=== PATIENT | male | born 1935 | race Caucasian/White ===

== ENCOUNTER 2016-08-11 20:31 | Inpatient (IN) | payer MEDICARE, BC ==
[~2016-08-11] VITALS: Ht 182.9 cm; Wt 81.6 kg
[2016-08-11] MEDS ORDERED: DOCU-109 PO (20:42)
[2016-08-11] MEDS ORDERED: HYDR-971 PO (20:42)
[2016-08-11] MEDS ORDERED: ASPI81TA50 PO (20:42)
[2016-08-11] MEDS ORDERED: CETI10TA16 PO (20:42)
[2016-08-11] MEDS ORDERED: MULT1TAB52 PO (20:42)
[2016-08-11] MEDS ORDERED: CELE200C PO (20:42)
[2016-08-11] MEDS ORDERED: MAG355OR33 PO (20:42)
[2016-08-11] MEDS ORDERED: IBUP400T18 PO (20:42)
[2016-08-11] MEDS ORDERED: LORA0.5T96 PO (20:42)
[2016-08-11] MEDS ORDERED: SERT50TA PO (20:42)
[2016-08-11] MEDS ORDERED: PROP10DR4 OU (20:42)
[2016-08-11] MEDS ORDERED: GLUC1CAP13 PO (20:44)
[2016-08-11] MEDS ORDERED: METHYL SALICYLATE/MENTHOL TOPICAL OINTMENT 29GM TUBE. TP PRN (20:45)
[2016-08-11] MEDS ORDERED: MAG HYDROX/AL HYDROX/SIMETH 30 ML ORAL.SUSP PO PRN (20:45)
[2016-08-11] MEDS ORDERED: MAGNESIUM HYDROXIDE 2,400 MG/30 ML ORAL.SUSP. PO PRN (20:45)
[2016-08-11] MEDS ORDERED: ACETAMINOPHEN 325 MG TABLET PO PRN (20:45)
--- NOTE | 2016-08-11 20:57 | PDOC ---
Exam Ciro Demential Exam: Ciro Note: Please also refer to the separate dictated note~for this date of service dictated separately.~Patient seen individually. Discussed the patient with Nursing staff reviewed the chart.~Reviewed interim history and current functioning. Reviewed vital signs,~Labs/ Radiology~and current medications noted below. Continue current treatment with the changes noted in the dictated addendum note Current Medications: Meds: Current Medications Acetaminophen (Tylenol) 650 mg PRN Q6HRS PRN PO PAIN / TEMP; Start 08/11/16 at 20:45; Status UNV Multi-Ingredient Ointment (Analgesic [place]) 1 josé antonio PRN QID PRN TP MUSCLE PAIN; Start 08/11/16 at 20:45; Status UNV Al Hydroxide/Mg Hydroxide (Mylanta Plus Xs) 15 ml PRN AFTMEALHC PRN PO DYSPEPSIA; Start 08/11/16 at 20:45; Status UNV Magnesium Hydroxide (Milk Of Magnesia) 2,400 mg PRN QHS PRN PO CONSTIPATION; Start 08/11/16 at 20:45; Status UNV Lorazepam (Ativan) 0.5 mg PRN Q6HRS PRN PO ANXIETY / AGITATION; Start 08/11/16 at 20:45; Status UNV Sertraline HCl (Zoloft) 50 mg DAILY PO ; Start 08/12/16 at 09:00; Status UNV Aspirin (Aspirin Enteric Coated) 81 mg DAILY PO ; Start 08/12/16 at 09:00; Status UNV Celecoxib (Celebrex) 200 mg DAILY PO ; Start 08/12/16 at 09:00; Status UNV Cetirizine HCl (Zyrtec) 10 mg DAILY PO ; Start 08/12/16 at 09:00; Status UNV Docusate Sodium (Colace) 100 mg PRN DAILY PRN PO CONSTIPATION; Start 08/11/16 at 21:00; Status UNV Acetaminophen/ Hydrocodone Bitart (Lortab 5/325) 1 tab PRN Q4HRS PRN PO PAIN; Start 08/11/16 at 21:00; Status UNV Ibuprofen (Motrin) 400 mg PRN Q6HRS PRN PO PAIN; Start 08/11/16 at 21:00; Status UNV Non-Formulary Medication 1 cap DAILY PO Joint Health; Start 08/12/16 at 09:00; Status UNV Non-Formulary Medication 1 tab DAILY PO Supplement; Start 08/12/16 at 09:00; Status UNV Non-Formulary Medication 1 drop BID OU ; Start 08/11/16 at 21:00; Status UNV Active Scripts Active Reported Glucosamine Complex-Msm Cap (Gluc Julio/Msm/Magnesium/Vit C) 1 Each Capsule 1 Cap PO DAILY Ativan (Lorazepam) 0.5 Mg Tablet 0.5 Mg PO PRN Q6HRS PRN Systane Balance (Propylene Glycol) 10 Ml Drops 1 Drop OU BID Colace (Docusate Sodium) 100 Mg Capsule 100 Mg PO PRN DAILY PRN [place] 5-325 Tablet (Hydrocodone Bit/Acetaminophen) 1 Each Tablet 1 Tab PO PRN Q4HRS PRN [place] Suspension (Mag Hydrox/Al Hydrox/Simeth) 355 Ml Oral.susp 30 Ml PO PRN QID PRN Ibuprofen 400 Mg Tablet 400 Mg PO PRN Q6HRS PRN Cetirizine Hcl 10 Mg Tablet 10 Mg PO DAILY Celebrex (Celecoxib) 200 Mg Capsule 200 Mg PO DAILY Multivitamins (Multivitamin) 1 Each Tablet 1 Tab PO DAILY Zoloft (Sertraline Hcl) 50 Mg Tablet 50 Mg PO DAILY Aspir-Low (Aspirin) 81 Mg Tablet. 81 Mg PO DAILY NEERU CALIX MD Aug 11, 2016 20:57
[2016-08-11] MEDS ORDERED: IBUPROFEN 400 MG TABLET. PO PRN (21:00)
[2016-08-11] MEDS ORDERED: DOCUSATE SODIUM 100 MG CAPSULE PO PRN (21:00)
[2016-08-11] MEDS: LORazepam 0.5 MG TABLET PO PRN (23:00)
[2016-08-12 02:14] LABS: ALBUMIN 3.8 g/dL (3.4-5.0); ALBUMIN/GLOBULIN RATIO 1.1 (1.0-1.7); CALCIUM 9.2 mg/dL (8.5-10.1); CREATININE 1.2 mg/dL (0.7-1.3); POTASSIUM 4.2 mmol/L (3.5-5.1); TOTAL BILIRUBIN 0.4 mg/dL (0.2-1.0); TOTAL PROTEIN 7.3 g/dL (6.4-8.2)
[2016-08-12 02:15] LABS: MAGNESIUM 2.1 mg/dL (1.8-2.4)
[2016-08-12 02:16] LABS: HEMATOCRIT 41.2 % (39.0-53.0); HEMOGLOBIN 13.5 g/dL (13.0-17.5); MEAN CORPUSCULAR HEMOGLOBIN 32 pg (25-35); MEAN CORPUSCULAR HGB CONC 33 g/dL (31-37); MEAN CORPUSCULAR VOLUME 98 fL (79-100); PLATELET COUNT 179 x10^3/uL (140-400); RED BLOOD COUNT 4.22 x10^6/uL (4.30-5.70); RED CELL DISTRIBUTION WIDTH 13.5 % (11.5-14.5); WHITE BLOOD COUNT 6.5 x10^3/uL (4.0-11.0)
[2016-08-12 02:17] LABS: BASO # 0.1 x10^3/uL (0.0-0.2); BASO % 1 % (0-3); EOS # 0.3 x10^3/uL (0.0-0.7); EOS % 4 % (0-3); LYMPH # 2.9 x10^3/uL (1.0-4.8); LYMPH % 45 % (24-48); MONO # 0.8 x10^3/uL (0.0-1.1); MONO % 12 % (0-9); NEUT # 2.5 x10^3uL (1.8-7.7); NEUT % 39 % (31-73)
[2016-08-12 02:27] LABS: BACTERIA,URINE 0 /HPF (0-FEW); BILIRUBIN,URINE NEG (NEG); CLARITY,URINE CLEAR; COLOR,URINE YELLOW; GLUCOSE,URINE NEG (NEG); NITRITE,URINE NEG (NEG); RBC,URINE OCC /HPF (0-2); SQUAMOUS EPITHELIAL CELL,UR FEW /LPF; UROBILINOGEN,URINE 2 mg/dL (0.2 mg/dL); WBC,URINE OCC /HPF (0-4)
[2016-08-12 05:56] VITALS: BP 129/76
[2016-08-12 06:09] VITALS: BP 119/68
[2016-08-12] MEDS: SERTRALINE 50 MG TABLET. PO SCH (08:12)
[2016-08-12] MEDS: POLYVINYL ALCOHOL 1.4% OPHTH SOLUTION 15ML BOTTLE. OU SCH ×2 (08:12→19:41)
[2016-08-12] MEDS: MULTIVITAMIN with MINERAL TABLET. PO SCH (08:12)
[2016-08-12] MEDS: ASPIRIN ENTERIC COATED 81 MG TABLET.DR. PO SCH (08:12)
[2016-08-12] MEDS: CETIRIZINE HCL 10 MG TABLET PO SCH (08:12)
[2016-08-12] MEDS: CELECOXIB 200 MG CAPSULE PO SCH (08:12)
[2016-08-12] MEDS ORDERED: VIT C PO SCH (09:00)
[2016-08-12] MEDS ORDERED: MSM PO SCH (09:00)
[2016-08-12] MEDS ORDERED: MAGNESIUM PO SCH (09:00)
[2016-08-12] MEDS ORDERED: GLUC SU PO SCH (09:00)
[2016-08-12 13:42] LABS: THYROID STIM HORMONE (TSH) 2.08 uIU/mL (0.358-3.740)
[2016-08-12] MEDS ORDERED: MELA1TAB13 PO (13:56)
[2016-08-12] MEDS ORDERED: GUAI600T47 PO (13:56)
[2016-08-12 15:10] LABS: T3 TOTAL 70 ng/dL (71-180); THYROXINE 4.5 ug/dL (4.5-12.0)
[2016-08-12 16:25] VITALS: BP 123/76
[2016-08-12] MEDS: LORazepam 0.5 MG TABLET PO PRN (19:38)
[2016-08-12] MEDS: MELATONIN 3 MG TABLET PO SCH (19:38)
--- NOTE | 2016-08-12 21:27 | EKG ---
[address] [address] Test Date: 2016-08-12 Test Time: 16:05:23 Pat Name: DARIN LOMELI Department: Room: [address] [place] [address] Gender: M Senior Caregiver: JOSE : 1935 Requested By: NEERU CALIX Order Number: [id number] Reading MD: Neto Castillo Measurements Intervals Terry Rate: 63 P: 33 SC: 178 QRS: 16 QRSD: 86 T: 32 QT: 404 QTc: 416 Interpretive Statements SINUS RHYTHM Electronically Signed On 08-16-2016 9:58:30 CDT by Neto Castillo
--- NOTE | 2016-08-12 22:24 | PDOC ---
Exam Ciro Demential Exam: Ciro Note: Please also refer to the separate dictated note~for this date of service dictated separately.~Patient seen individually. Discussed the patient with Nursing staff reviewed the chart.~Reviewed interim history and current functioning. Reviewed vital signs,~Labs/ Radiology~and current medications noted below. Continue current treatment with the changes noted in the dictated addendum note Assessment: Vital Signs: Vital Signs Date Time Temp Pulse Resp B/P Pulse Ox O2 Delivery O2 Flow Rate FiO2 08/12/16 16:25 97.9 87 19 123/76 98 Current Medications: Meds: Current Medications Acetaminophen (Tylenol) 650 mg PRN Q6HRS PRN PO MILD PAIN / TEMP; Start at 20:45 Multi-Ingredient Ointment (Analgesic [place]) 1 josé antonio PRN QID PRN TP MUSCLE PAIN; Start 08/11/16 at 20:45 Al Hydroxide/Mg Hydroxide (Mylanta Plus Xs) 15 ml PRN AFTMEALHC PRN PO DYSPEPSIA; Start 08/11/16 at 20:45 Magnesium Hydroxide (Milk Of Magnesia) 2,400 mg PRN QHS PRN PO CONSTIPATION; Start 08/11/16 at 20:45 Lorazepam (Ativan) 0.5 mg PRN Q6HRS PRN PO ANXIETY / AGITATION Last administered on 08/12/16 19:38; Start 08/11/16 at 20:45 Sertraline HCl (Zoloft) 50 mg DAILY PO Last administered on 08/12/16 08:12; Start 08/12/16 at 09:00 Aspirin (Aspirin Enteric Coated) 81 mg DAILY PO Last administered on 08/12/16 08:12; Start 08/12/16 at 09:00 Celecoxib (Celebrex) 200 mg DAILY PO Last administered on 08/12/16 08:12; Start 08/12/16 at 09:00 Cetirizine HCl (Zyrtec) 10 mg DAILY PO Last administered on 08/12/16 08:12; Start 08/12/16 at 09:00 Docusate Sodium (Colace) 100 mg PRN DAILY PRN PO CONSTIPATION; Start 08/11/16 at 21:00 Acetaminophen/ Hydrocodone Bitart (Lortab 5/325) 1 tab PRN Q4HRS PRN PO SEVERE PAIN; Start 08/11/16 at 21:00 Ibuprofen (Motrin) 400 mg PRN Q6HRS PRN PO MODERATE PAIN; Start 08/11/16 at 21: 00 Non-Formulary Medication 1 cap DAILY PO Joint Health; Start 08/12/16 at 09:00; Status UNV Multivitamins/ Calcium (Thera-M Plus) 1 tab DAILY PO Last administered on 08:12; Start 08/12/16 at 09:00 Artificial Tears (Artificial Tears) 1 drop BID OU ; Start 08/12/16 at 09:00 Guaifenesin (Mucinex Er) 600 mg BID PO ; Start 08/12/16 at 21:00 Melatonin 3 mg QHS PO Last administered on 08/12/16 19:38; Start 08/12/16 at 21:00 Olanzapine (Zyprexa Zydis) 2.5 mg PRN Q2HR PRN PO PSYCHOSIS Last administered on 08/12/16 19:53; Start 08/12/16 at 19:45 Active Scripts Active Reported Mucinex (Guaifenesin) 600 Mg Tablet.er 600 Mg PO BID Melatonin 3 Mg Tablet (Melatonin/Pyridoxine) 1 Each Tablet 3 Mg PO QHS Glucosamine Complex-Msm Cap (Gluc Julio/Msm/Magnesium/Vit C) 1 Each Capsule 1 Cap PO DAILY Ativan (Lorazepam) 0.5 Mg Tablet 0.5 Mg PO PRN Q6HRS PRN Systane Balance (Propylene Glycol) 10 Ml Drops 1 Drop OU BID Colace (Docusate Sodium) 100 Mg Capsule 100 Mg PO PRN DAILY PRN [place] 5-325 Tablet (Hydrocodone Bit/Acetaminophen) 1 Each Tablet 1 Tab PO PRN Q4HRS PRN [place] Suspension (Mag Hydrox/Al Hydrox/Simeth) 355 Ml Oral.susp 30 Ml PO PRN QID PRN Ibuprofen 400 Mg Tablet 400 Mg PO PRN Q6HRS PRN Cetirizine Hcl 10 Mg Tablet 10 Mg PO DAILY Celebrex (Celecoxib) 200 Mg Capsule 200 Mg PO DAILY Multivitamins (Multivitamin) 1 Each Tablet 1 Tab PO DAILY Zoloft (Sertraline Hcl) 50 Mg Tablet 50 Mg PO DAILY Aspir-Low (Aspirin) 81 Mg Tablet. 81 Mg PO DAILY NEERU CALIX MD Aug 12, 2016 22:24
[2016-08-13 06:05] VITALS: BP 141/77
[2016-08-13 06:09] LABS: HEMOGLOBIN A1C 5.3 % (4.8-5.6)
[2016-08-13] MEDS: ASPIRIN ENTERIC COATED 81 MG TABLET.DR. PO SCH (07:19)
[2016-08-13] MEDS: CETIRIZINE HCL 10 MG TABLET PO SCH (07:20)
[2016-08-13] MEDS: MULTIVITAMIN with MINERAL TABLET. PO SCH (07:20)
[2016-08-13] MEDS: SERTRALINE 50 MG TABLET. PO SCH (07:20)
[2016-08-13] MEDS: CELECOXIB 200 MG CAPSULE PO SCH (07:20)
[2016-08-13] MEDS: POLYVINYL ALCOHOL 1.4% OPHTH SOLUTION 15ML BOTTLE. OU SCH ×2 (07:21→19:34)
[2016-08-13 17:40] VITALS: BP 96/55
[2016-08-13] MEDS: MELATONIN 3 MG TABLET PO SCH (19:33)
[2016-08-13] MEDS: busPIRone 5 MG TABLET. PO SCH (19:34)
[2016-08-14 06:05] VITALS: BP 117/78
[2016-08-14] MEDS: MULTIVITAMIN with MINERAL TABLET. PO SCH (09:55)
[2016-08-14] MEDS: CETIRIZINE HCL 10 MG TABLET PO SCH (09:55)
[2016-08-14] MEDS: ASPIRIN ENTERIC COATED 81 MG TABLET.DR. PO SCH (09:55)
[2016-08-14] MEDS: busPIRone 5 MG TABLET. PO SCH ×2 (09:55→20:46)
[2016-08-14] MEDS: SERTRALINE 50 MG TABLET. PO SCH (09:56)
[2016-08-14] MEDS: POLYVINYL ALCOHOL 1.4% OPHTH SOLUTION 15ML BOTTLE. OU SCH ×3 (09:56→20:59)
[2016-08-14] MEDS: CELECOXIB 200 MG CAPSULE PO SCH (09:57)
--- NOTE | 2016-08-14 11:54 | PN ---
DATE: 08/12/2016 IDENTIFYING DATA: The patient is an 81-year-old male referred to us from [facility] after he presented to the [facility] on account of increased agitation, aggressive behavior, has been combative, banging doors, increasing confusion. The patient's behaviors were deemed a potential danger, unmanageable at the facility, referred from the ER for inpatient psychiatric stabilization. The patient was seen individually, discussed with nursing staff, reviewed current and past records. CHIEF COMPLAINT: "No." HISTORY OF PRESENT ILLNESS: The patient has a history of dementia; Alzheimer's, vascular type. He has been residing at the above facility for some time, but more recently getting explosive angry, aggressive, disruptive as noted above. He has had sleep and appetite changes. No active suicidal or homicidal ideation. No clear history of bipolar disorder. PAST PSYCHIATRIC HISTORY: As above. MEDICAL HISTORY: Hypertension, CHF, degenerative joint disease and Alzheimer disease. DRUG ALLERGIES: Negative. CODE STATUS: DNR. CURRENT PSYCHOTROPICS: Zoloft 50 mg a day and Ativan 0.5 mg q. 6 hours p.r.n. FAMILY HISTORY: Noncontributory. SOCIAL HISTORY: No history of alcohol, drug abuse, physical, sexual or elder abuse. He is not known to be a perpetrator. MENTAL STATUS EXAMINATION: The patient is oriented to himself. Insight, judgment, recent and remote memory, attention, concentration, fund of knowledge poor, consistent with his diagnosis. VITAL SIGNS: Temperature 97.6, pulse 60, BP 129/76. REVIEW OF SYSTEMS: No CV, , pulmonary, eye, ENT system symptoms on review. Reliability poor. IMPRESSION: Major neurocognitive disorder; Alzheimer, vascular with depression; delusion; behavioral disturbance; anxiety disorder, unspecified; impulse control disorder, unspecified. PLAN: Admit to the Geropsychiatry Unit at [facility]. I will see the patient daily individually from a psychiatric standpoint. Medical followup with Dr. Matias/Dr. Fournier. We will add Zyprexa p.r.n., since he has been extremely psychotic, agitated within the context of his confusion. Reportedly, he was living at home in [place], but his 2 years ago. Family brought him to this area. He is frequently exit seeking at times, appears lucid and then more confused. He has reportedly been sent back to the Emergency Room 3 times till this last visit when the ER called us. He used to report he worked for a [employer]. We will observe the patient's baseline, then adjust psychotropics as clinically indicated as this reviewed information from the Emergency Room directly prior to the patient's admission, interviewed with nursing staff. NEERU CALIX MD DR: CHIDI/cristi JOB#: [id number] / [id number]
[2016-08-14 15:45] VITALS: BP 125/74
--- NOTE | 2016-08-14 20:39 | PDOC ---
Exam Ciro Demential Exam: Ciro Note: Please also refer to the separate dictated note~for this date of service dictated separately.~Patient seen individually. Discussed the patient with Nursing staff reviewed the chart.~Reviewed interim history and current functioning. Reviewed vital signs,~Labs/ Radiology~and current medications noted below. Continue current treatment with the changes noted in the dictated addendum note Assessment: Vital Signs: Vital Signs Date Time Temp Pulse Resp B/P Pulse Ox O2 Delivery O2 Flow Rate FiO2 08/14/16 15:45 97.6 67 19 125/74 98 I&O Intake and Output 08/14/16 07:00 Intake Total 1080 ml Balance 1080 ml Intake Oral 1080 ml Current Medications: Meds: Current Medications Acetaminophen (Tylenol) 650 mg PRN Q6HRS PRN PO MILD PAIN / TEMP; Start at 20:45 Multi-Ingredient Ointment (Analgesic [place]) 1 josé antonio PRN QID PRN TP MUSCLE PAIN; Start 08/11/16 at 20:45 Al Hydroxide/Mg Hydroxide (Mylanta Plus Xs) 15 ml PRN AFTMEALHC PRN PO DYSPEPSIA; Start 08/11/16 at 20:45 Magnesium Hydroxide (Milk Of Magnesia) 2,400 mg PRN QHS PRN PO CONSTIPATION; Start 08/11/16 at 20:45 Lorazepam (Ativan) 0.5 mg PRN Q6HRS PRN PO ANXIETY / AGITATION Last administered on 08/12/16 19:38; Start 08/11/16 at 20:45 Sertraline HCl (Zoloft) 50 mg DAILY PO Last administered on 08/14/16 09:56; Start 08/12/16 at 09:00 Aspirin (Aspirin Enteric Coated) 81 mg DAILY PO Last administered on 08/14/16 09:55; Start 08/12/16 at 09:00 Celecoxib (Celebrex) 200 mg DAILY PO Last administered on 08/14/16 09:57; Start 08/12/16 at 09:00 Cetirizine HCl (Zyrtec) 10 mg DAILY PO Last administered on 08/14/16 09:55; Start 08/12/16 at 09:00 Docusate Sodium (Colace) 100 mg PRN DAILY PRN PO CONSTIPATION; Start 08/11/16 at 21:00 Acetaminophen/ Hydrocodone Bitart (Lortab 5/325) 1 tab PRN Q4HRS PRN PO SEVERE PAIN; Start 08/11/16 at 21:00 Ibuprofen (Motrin) 400 mg PRN Q6HRS PRN PO MODERATE PAIN; Start 08/11/16 at 21: 00 Non-Formulary Medication 1 cap DAILY PO Joint Health; Start 08/12/16 at 09:00; Status UNV Multivitamins/ Calcium (Thera-M Plus) 1 tab DAILY PO Last administered on 09:55; Start 08/12/16 at 09:00 Artificial Tears (Artificial Tears) 1 drop BID OU Last administered on 09:56; Start 08/12/16 at 09:00 Guaifenesin (Mucinex Er) 600 mg BID PO Last administered on 08/14/16 09:55; Start 08/12/16 at 21:00 Melatonin 3 mg QHS PO Last administered on 08/13/16 19:33; Start 08/12/16 at 21:00 Olanzapine (Zyprexa Zydis) 2.5 mg PRN Q2HR PRN PO PSYCHOSIS Last administered on 08/13/16 12:12; Start 08/12/16 at 19:45 Buspirone HCl (Buspar) 5 mg BID PO Last administered on 08/14/16 09:55; Start 08/13/16 at 21:00 Active Scripts Active Reported Mucinex (Guaifenesin) 600 Mg Tablet.er 600 Mg PO BID Melatonin 3 Mg Tablet (Melatonin/Pyridoxine) 1 Each Tablet 3 Mg PO QHS Glucosamine Complex-Msm Cap (Gluc Julio/Msm/Magnesium/Vit C) 1 Each Capsule 1 Cap PO DAILY Ativan (Lorazepam) 0.5 Mg Tablet 0.5 Mg PO PRN Q6HRS PRN Systane Balance (Propylene Glycol) 10 Ml Drops 1 Drop OU BID Colace (Docusate Sodium) 100 Mg Capsule 100 Mg PO PRN DAILY PRN [place] 5-325 Tablet (Hydrocodone Bit/Acetaminophen) 1 Each Tablet 1 Tab PO PRN Q4HRS PRN Mintox Suspension (Mag Hydrox/Al Hydrox/Simeth) 355 Ml Oral.susp 30 Ml PO PRN QID PRN Ibuprofen 400 Mg Tablet 400 Mg PO PRN Q6HRS PRN Cetirizine Hcl 10 Mg Tablet 10 Mg PO DAILY Celebrex (Celecoxib) 200 Mg Capsule 200 Mg PO DAILY Multivitamins (Multivitamin) 1 Each Tablet 1 Tab PO DAILY Zoloft (Sertraline Hcl) 50 Mg Tablet 50 Mg PO DAILY Aspir-Low (Aspirin) 81 Mg Tablet.dr 81 Mg PO DAILY Diagnosis: Problems: (1) Anxiety disorder (2) Dementia in Alzheimer's disease with delusions (3) Dementia in Alzheimer's disease with depression (4) Dementia, vascular, with delusions (5) Dementia, vascular, with depression (6) Impulse control disorder NEERU CALIX MD August 14, 2016 20:39
[2016-08-14] MEDS: MELATONIN 3 MG TABLET PO SCH (20:46)
[2016-08-14 21:10] VITALS: BP 102/57
--- NOTE | 2016-08-15 02:24 | PN ---
DATE: 08/13/2016 This is late entry of 08/13/2016. SUBJECTIVE: The patient was seen on rounds the evening of 08/13/2016, discussed with nursing staff, reviewed the chart. Overall, per nursing report, the patient had a better day. He remains confused, agitated in the afternoon, received Zyprexa Zydis p.r.n., refused his at bedtime meds on 08/12/2016, had to be syringed, remains anxious, confused. REVIEW OF SYSTEMS: No CV, , pulmonary, eye, ENT system symptoms on review. Reliability poor. MENTAL STATUS EXAMINATION: Oriented to himself. Insight, judgment, recent and remote memory, attention, concentration, fund of knowledge poor, consistent with his diagnosis. OBJECTIVE: Temperature 97, pulse 68, respirations 20, BP 117/78. IMPRESSION: Major neurocognitive disorder, Alzheimer, vascular with depression, delusion, behavioral disturbance. Rest unchanged. PLAN: Start BuSpar 5 mg twice a day, maintain Zoloft 50 mg a day, Ativan and Zyprexa p.r.n. May need to increase Zoloft in due course. MAN Marlon CALIX MD DR: CHIDI/cristi JOB#: [id number] / [id number]
[2016-08-15 06:27] VITALS: BP 138/76
[2016-08-15] MEDS: CHOLECALCIFEROL (VITAMIN D3) 1,000 UNIT TABLET PO SCH ×2 (08:00→11:30)
--- NOTE | 2016-08-15 08:18 | RAD ---
Pelvis with right hip, 3 views, 08/15/2016: History: Fall, injury There is dislocation of a right total hip prosthesis. The femoral head component is displaced proximally and laterally relative to the acetabular component. No fracture is identified. There is mild degenerative change at the left hip joint and in the lower lumbar spine. IMPRESSION: Dislocated right hip prosthesis.
[2016-08-15] MEDS: SERTRALINE 50 MG TABLET. PO SCH (08:40)
[2016-08-15] MEDS: busPIRone 5 MG TABLET. PO SCH ×2 (08:43→19:21)
[2016-08-15] MEDS: HYDROcodone/APAP 5/325MG 1 TAB TABLET PO PRN (08:43)
[2016-08-15] MEDS: MULTIVITAMIN with MINERAL TABLET. PO SCH (09:00)
[2016-08-15] MEDS: POLYVINYL ALCOHOL 1.4% OPHTH SOLUTION 15ML BOTTLE. OU SCH ×2 (09:00→19:21)
[2016-08-15] MEDS: CETIRIZINE HCL 10 MG TABLET PO SCH (09:00)
[2016-08-15] MEDS: CELECOXIB 200 MG CAPSULE PO SCH (09:00)
[2016-08-15] MEDS: ASPIRIN ENTERIC COATED 81 MG TABLET.DR. PO SCH (09:00)
--- NOTE | 2016-08-15 11:46 | HP ---
ADMIT DATE: 08/12/2016 IDENTIFYING DATA: The patient is an 81-year-old male referred to us from [facility] after he presented to the [facility] on account of increased agitation, aggressive behavior, has been combative, banging doors, increasing confusion. The patient's behaviors were deemed a potential danger, unmanageable at the facility, referred from the ER for inpatient psychiatric stabilization. The patient was seen individually, discussed with nursing staff, reviewed current and past records. CHIEF COMPLAINT: "No." HISTORY OF PRESENT ILLNESS: The patient has a history of dementia; Alzheimer's, vascular type. He has been residing at the above facility for some time, but more recently getting explosive angry, aggressive, disruptive as noted above. He has had sleep and appetite changes. No active suicidal or homicidal ideation. No clear history of bipolar disorder. PAST PSYCHIATRIC HISTORY: As above. MEDICAL HISTORY: Hypertension, CHF, degenerative joint disease and Alzheimer disease. DRUG ALLERGIES: Negative. CODE STATUS: DNR. CURRENT PSYCHOTROPICS: Zoloft 50 mg a day and Ativan 0.5 mg q. 6 hours p.r.n. FAMILY HISTORY: Noncontributory. SOCIAL HISTORY: No history of alcohol, drug abuse, physical, sexual or elder abuse. He is not known to be a perpetrator. MENTAL STATUS EXAMINATION: The patient is oriented to himself. Insight, judgment, recent and remote memory, attention, concentration, fund of knowledge poor, consistent with his diagnosis. VITAL SIGNS: Temperature 97.6, pulse 60, BP 129/76. REVIEW OF SYSTEMS: No CV, , pulmonary, eye, ENT system symptoms on review. Reliability poor. IMPRESSION: Major neurocognitive disorder; Alzheimer, vascular with depression; delusion; behavioral disturbance; anxiety disorder, unspecified; impulse control disorder, unspecified. PLAN: Admit to the Geropsychiatry Unit at [facility]. I will see the patient daily individually from a psychiatric standpoint. Medical followup with Dr. Matias/Dr. Fournier. We will add Zyprexa p.r.n., since he has been extremely psychotic, agitated within the context of his confusion. Reportedly, he was living at home in [place], but his 2 years ago. Family brought him to this area. He is frequently exit seeking at times, appears lucid and then more confused. He has reportedly been sent back to the Emergency Room 3 times till this last visit when the ER called us. He used to report he worked for a [employer]. We will observe the patient's baseline, then adjust psychotropics as clinically indicated as this reviewed information from the Emergency Room directly prior to the patient's admission, interviewed with nursing staff. NEERU CALIX MD DR: CHIDI/cristi JOB#: [id number] / [id number]
[2016-08-15 15:55] VITALS: BP 109/51
[2016-08-15] MEDS: MELATONIN 3 MG TABLET PO SCH (19:21)
--- NOTE | 2016-08-15 21:14 | PDOC ---
Exam Ciro Demential Exam: Ciro Note: Please also refer to the separate dictated note~for this date of service dictated separately.~Patient seen individually. Discussed the patient with Nursing staff reviewed the chart.~Reviewed interim history and current functioning. Reviewed vital signs,~Labs/ Radiology~and current medications noted below. Continue current treatment with the changes noted in the dictated addendum note Assessment: Vital Signs: Vital Signs Date Time Temp Pulse Resp B/P Pulse Ox O2 Delivery O2 Flow Rate FiO2 08/15/16 15:55 98.5 63 18 109/51 100 08/15/16 09:45 Room Air I&O Intake and Output 08/15/16 07:00 Intake Total 840 ml Balance 840 ml Intake Oral 840 ml # Voids 2 Current Medications: Meds: Current Medications Acetaminophen (Tylenol) 650 mg PRN Q6HRS PRN PO MILD PAIN / TEMP; Start at 20:45 Multi-Ingredient Ointment (Analgesic [place]) 1 josé antonio PRN QID PRN TP MUSCLE PAIN; Start 08/11/16 at 20:45 Al Hydroxide/Mg Hydroxide (Mylanta Plus Xs) 15 ml PRN AFTMEALHC PRN PO DYSPEPSIA; Start 08/11/16 at 20:45 Magnesium Hydroxide (Milk Of Magnesia) 2,400 mg PRN QHS PRN PO CONSTIPATION; Start 08/11/16 at 20:45 Lorazepam (Ativan) 0.5 mg PRN Q6HRS PRN PO ANXIETY / AGITATION Last administered on 08/12/16 19:38; Start 08/11/16 at 20:45 Sertraline HCl (Zoloft) 50 mg DAILY PO Last administered on 08/15/16 08:40; Start 08/12/16 at 09:00 Aspirin (Aspirin Enteric Coated) 81 mg DAILY PO Last administered on 08/14/16 09:55; Start 08/12/16 at 09:00 Celecoxib (Celebrex) 200 mg DAILY PO Last administered on 08/14/16 09:57; Start 08/12/16 at 09:00 Cetirizine HCl (Zyrtec) 10 mg DAILY PO Last administered on 08/14/16 09:55; Start 08/12/16 at 09:00 Docusate Sodium (Colace) 100 mg PRN DAILY PRN PO CONSTIPATION; Start 08/11/16 at 21:00 Acetaminophen/ Hydrocodone Bitart (Lortab 5/325) 1 tab PRN Q4HRS PRN PO SEVERE PAIN Last administered on 08/15/16 08:43; Start 08/11/16 at 21:00 Ibuprofen (Motrin) 400 mg PRN Q6HRS PRN PO MODERATE PAIN; Start 08/11/16 at 21: 00 Non-Formulary Medication 1 cap DAILY PO Joint Health; Start 08/12/16 at 09:00; Status UNV Multivitamins/ Calcium (Thera-M Plus) 1 tab DAILY PO Last administered on 09:55; Start 08/12/16 at 09:00 Artificial Tears (Artificial Tears) 1 drop BID OU Last administered on 19:21; Start 08/12/16 at 09:00 Guaifenesin (Mucinex Er) 600 mg BID PO Last administered on 08/15/16 19:21; Start 08/12/16 at 21:00 Melatonin 3 mg QHS PO Last administered on 08/15/16 19:21; Start 08/12/16 at 21 :00 Olanzapine (Zyprexa Zydis) 2.5 mg PRN Q2HR PRN PO PSYCHOSIS Last administered on 08/13/16 12:12; Start 08/12/16 at 19:45 Buspirone HCl (Buspar) 5 mg BID PO Last administered on 08/15/16 19:21; Start 08/13/16 at 21:00 Vitamin D (Vitamin D3) 2,000 unit BIDACBL PO ; Start 08/15/16 at 08:00 Active Scripts Active Reported Mucinex (Guaifenesin) 600 Mg Tablet.er 600 Mg PO BID Melatonin 3 Mg Tablet (Melatonin/Pyridoxine) 1 Each Tablet 3 Mg PO QHS Glucosamine Complex-Msm Cap (Gluc Julio/Msm/Magnesium/Vit C) 1 Each Capsule 1 Cap PO DAILY Ativan (Lorazepam) 0.5 Mg Tablet 0.5 Mg PO PRN Q6HRS PRN Systane Balance (Propylene Glycol) 10 Ml Drops 1 Drop OU BID Colace (Docusate Sodium) 100 Mg Capsule 100 Mg PO PRN DAILY PRN [place] 5-325 Tablet (Hydrocodone Bit/Acetaminophen) 1 Each Tablet 1 Tab PO PRN Q4HRS PRN [place] Suspension (Mag Hydrox/Al Hydrox/Simeth) 355 Ml Oral.susp 30 Ml PO PRN QID PRN Ibuprofen 400 Mg Tablet 400 Mg PO PRN Q6HRS PRN Cetirizine Hcl 10 Mg Tablet 10 Mg PO DAILY Celebrex (Celecoxib) 200 Mg Capsule 200 Mg PO DAILY Multivitamins (Multivitamin) 1 Each Tablet 1 Tab PO DAILY Zoloft (Sertraline Hcl) 50 Mg Tablet 50 Mg PO DAILY Aspir-Low (Aspirin) 81 Mg Tablet.dr 81 Mg PO DAILY Diagnosis: Problems: (1) Anxiety disorder (2) Dementia in Alzheimer's disease with delusions (3) Dementia in Alzheimer's disease with depression (4) Dementia, vascular, with delusions (5) Dementia, vascular, with depression (6) Impulse control disorder NEERU CALIX MD August 15, 2016 21:14
[2016-08-15] MEDS: LORazepam 0.5 MG TABLET PO PRN (23:01)
[2016-08-16] MEDS: HYDROcodone/APAP 5/325MG 1 TAB TABLET PO PRN ×2 (00:31→21:26)
--- NOTE | 2016-08-16 04:22 | PN ---
DATE: 08/15/2016 REASON FOR VISIT: Dislocated right hip prosthesis. HISTORY OF PRESENT ILLNESS: This is an 81-year-old male who was [facility] the [facility] 08[facility]. He has no history of severe falls. However, according to the son, he has dislocated this hip prosthesis twice previously. He was found on the floor today on his hands and knees, but was also on his hands and knees yesterday, he is complaining of severe pain in the hip. The patient was taken down to the radiology. OBJECTIVE: The patient is alert, he is in mild pain of the right leg, pain to touch. He does have good vascular and slightly inwardly rotated x-ray reveals a dislocated right hip prosthesis. ASSESSMENT: Dislocated right hip prosthesis. PLAN: He will go down to [place] and back for a short procedure per Dr. Brenner to put the hip prosthesis back in place. NBA CASANOVA DO DR: REX/cristi JOB#: [id number] / [id number]
[2016-08-16 06:25] VITALS: BP 145/71
--- NOTE | 2016-08-16 07:45 | PN ---
DATE: 08/14/2016 PSYCHIATRIC PROGRESS NOTE This is late entry of 08/14/2016 and covers elements not covered in my initial note. SUBJECTIVE: Per nursing report, the patient is compliant with his medications and pudding. He wanders the hallways. I had a message to call the patient's son, David and we had a long discussion about the patient's history, diagnosis, current treatment and discharge plan. The patient was living in [place] and his son brought him here about 2 years back after his . He has been at [facility] and was the only child. Recently prior to this referral, he was having poor sleep, grabbing at staff, banging doors. He had gone to the ER and work up was all negative from there before he came to us. Reportedly, the patient has a history of familial tremors as well. REVIEW OF SYSTEMS: No CV, , pulmonary, eye, ENT system symptoms on review. Reliability poor. MENTAL STATUS EXAMINATION: Oriented to himself. Insight, judgment, recent and remote memory, attention, concentration, fund of knowledge poor, consistent with his diagnosis. IMPRESSION: Major neurocognitive disorder, Alzheimer, vascular with depression, delusion, behavioral disturbance. Rest unchanged. PLAN: Continue Zoloft 50 mg a day, Ativan, Zyprexa p.r.n., BuSpar 5 mg b.i.d., melatonin 3 mg at bedtime. Make further adjustments as clinically indicated. May need to increase BuSpar considered Depakote if aggression resurfaces. Discussed all of this at great length with the son. MAN Marlon CALIX MD DR: CHIDI/cristi JOB#: [id number] / [id number]
[2016-08-16] MEDS: POLYVINYL ALCOHOL 1.4% OPHTH SOLUTION 15ML BOTTLE. OU SCH ×2 (09:00→21:09)
[2016-08-16] MEDS: ASPIRIN ENTERIC COATED 81 MG TABLET.DR. PO SCH (09:36)
[2016-08-16] MEDS: MULTIVITAMIN with MINERAL TABLET. PO SCH (09:36)
[2016-08-16] MEDS: busPIRone 5 MG TABLET. PO SCH ×2 (09:37→21:09)
[2016-08-16] MEDS: SERTRALINE 50 MG TABLET. PO SCH (09:37)
[2016-08-16] MEDS: CHOLECALCIFEROL (VITAMIN D3) 1,000 UNIT TABLET PO SCH ×2 (09:37→11:30)
[2016-08-16] MEDS: CETIRIZINE HCL 10 MG TABLET PO SCH (09:37)
[2016-08-16] MEDS: CELECOXIB 200 MG CAPSULE PO SCH (09:37)
[2016-08-16 15:42] VITALS: BP 119/71
--- NOTE | 2016-08-16 21:00 | PDOC ---
Exam Ciro Demential Exam: Ciro Note: Please also refer to the separate dictated note~for this date of service dictated separately.~Patient seen individually. Discussed the patient with Nursing staff reviewed the chart.~Reviewed interim history and current functioning. Reviewed vital signs,~Labs/ Radiology~and current medications noted below. Continue current treatment with the changes noted in the dictated addendum note Assessment: Vital Signs: Vital Signs Date Time Temp Pulse Resp B/P Pulse Ox O2 Delivery O2 Flow Rate FiO2 08/16/16 15:42 97.7 64 17 119/71 96 08/16/16 03:04 Room Air I&O Intake and Output 08/16/16 07:00 Intake Total 360 ml Balance 360 ml Intake Oral 360 ml # Voids 2 Current Medications: Meds: Current Medications Acetaminophen (Tylenol) 650 mg PRN Q6HRS PRN PO MILD PAIN / TEMP; Start at 20:45 Multi-Ingredient Ointment (Analgesic [place]) 1 josé antonio PRN QID PRN TP MUSCLE PAIN; Start 08/11/16 at 20:45 Al Hydroxide/Mg Hydroxide (Mylanta Plus Xs) 15 ml PRN AFTMEALHC PRN PO DYSPEPSIA; Start 08/11/16 at 20:45 Magnesium Hydroxide (Milk Of Magnesia) 2,400 mg PRN QHS PRN PO CONSTIPATION; Start 08/11/16 at 20:45 Lorazepam (Ativan) 0.5 mg PRN Q6HRS PRN PO ANXIETY / AGITATION Last administered on 08/15/16 23:01; Start 08/11/16 at 20:45 Sertraline HCl (Zoloft) 50 mg DAILY PO Last administered on 08/16/16 09:37; Start 08/12/16 at 09:00 Aspirin (Aspirin Enteric Coated) 81 mg DAILY PO Last administered on 08/16/16 09:36; Start 08/12/16 at 09:00 Celecoxib (Celebrex) 200 mg DAILY PO Last administered on 08/16/16 09:37; Start 08/12/16 at 09:00 Cetirizine HCl (Zyrtec) 10 mg DAILY PO Last administered on 08/16/16 09:37; Start 08/12/16 at 09:00 Docusate Sodium (Colace) 100 mg PRN DAILY PRN PO CONSTIPATION; Start 08/11/16 at 21:00 Acetaminophen/ Hydrocodone Bitart (Lortab 5/325) 1 tab PRN Q4HRS PRN PO SEVERE PAIN Last administered on 08/16/16 00:31; Start 08/11/16 at 21:00 Ibuprofen (Motrin) 400 mg PRN Q6HRS PRN PO MODERATE PAIN; Start 08/11/16 at 21: 00 Non-Formulary Medication 1 cap DAILY PO [facility]; Start 08/12/16 at 09:00; Status UNV Multivitamins/ Calcium (Thera-M Plus) 1 tab DAILY PO Last administered on 09:36; Start 08/12/16 at 09:00 Artificial Tears (Artificial Tears) 1 drop BID OU Last administered on 09:00; Start 08/12/16 at 09:00 Guaifenesin (Mucinex Er) 600 mg BID PO Last administered on 08/16/16 09:37; Start 08/12/16 at 21:00 Melatonin 3 mg QHS PO Last administered on 08/15/16 19:21; Start 08/12/16 at 21 :00 Olanzapine (Zyprexa Zydis) 2.5 mg PRN Q2HR PRN PO PSYCHOSIS Last administered on 08/15/16 23:01; Start 08/12/16 at 19:45 Buspirone HCl (Buspar) 5 mg BID PO Last administered on 08/16/16 09:37; Start 08/13/16 at 21:00 Vitamin D (Vitamin D3) 2,000 unit BIDACBL PO Last administered on 08/16/16 09: 37; Start 08/15/16 at 08:00 Mirtazapine (Remeron) 7.5 mg QHS PO ; Start 08/16/16 at 21:00 Active Scripts Active Reported Mucinex (Guaifenesin) 600 Mg Tablet.er 600 Mg PO BID Melatonin 3 Mg Tablet (Melatonin/Pyridoxine) 1 Each Tablet 3 Mg PO QHS Glucosamine Complex-Msm Cap (Gluc Julio/Msm/Magnesium/Vit C) 1 Each Capsule 1 Cap PO DAILY Ativan (Lorazepam) 0.5 Mg Tablet 0.5 Mg PO PRN Q6HRS PRN Systane Balance (Propylene Glycol) 10 Ml Drops 1 Drop OU BID Colace (Docusate Sodium) 100 Mg Capsule 100 Mg PO PRN DAILY PRN [place] 5-325 Tablet (Hydrocodone Bit/Acetaminophen) 1 Each Tablet 1 Tab PO PRN Q4HRS PRN [place] Suspension (Mag Hydrox/Al Hydrox/Simeth) 355 Ml Oral.susp 30 Ml PO PRN QID PRN Ibuprofen 400 Mg Tablet 400 Mg PO PRN Q6HRS PRN Cetirizine Hcl 10 Mg Tablet 10 Mg PO DAILY Celebrex (Celecoxib) 200 Mg Capsule 200 Mg PO DAILY Multivitamins (Multivitamin) 1 Each Tablet 1 Tab PO DAILY Zoloft (Sertraline Hcl) 50 Mg Tablet 50 Mg PO DAILY Aspir-Low (Aspirin) 81 Mg Tablet.dr 81 Mg PO DAILY Diagnosis: Problems: (1) Anxiety disorder (2) 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
[2016-08-16] MEDS: MELATONIN 3 MG TABLET PO SCH (21:09)
[2016-08-16] MEDS: MIRTAZAPINE 7.5 MG TABLET. PO SCH (21:09)
--- NOTE | 2016-08-17 02:44 | PN ---
DATE: 08/15/2016 PSYCHIATRIC PROGRESS NOTE This is a late entry on 08/15/2016, covers the elements not covered in my initial note. Overall, the patient remains confused. He dislocated his right hip and Orthopedics has repositioned it and he is now full weightbearing after that. He has not been aggressive. REVIEW OF SYSTEMS: No CV, , pulmonary, eye, ENT system symptoms on review. MENTAL STATUS EXAM: Oriented to himself. Insight, judgment, recent, and remote memory, attention, concentration, fund of knowledge poor, consistent with his diagnosis. LABORATORY DATA: Mentioned in my initial note. PLAN: Continue current psychotropics mentioned in my initial note including BuSpar, melatonin, Zoloft, Ativan p.r.n., Zyprexa p.r.n. MAN Marlon CALIX MD DR: CHIDI/cristi JOB#: [id number] / [id number]
[2016-08-17 07:36] VITALS: BP 132/73
[2016-08-17] MEDS: CELECOXIB 200 MG CAPSULE PO SCH (08:59)
[2016-08-17] MEDS: busPIRone 5 MG TABLET. PO SCH ×2 (08:59→19:35)
[2016-08-17] MEDS: SERTRALINE 50 MG TABLET. PO SCH (08:59)
[2016-08-17] MEDS: MULTIVITAMIN with MINERAL TABLET. PO SCH (08:59)
[2016-08-17] MEDS: CHOLECALCIFEROL (VITAMIN D3) 1,000 UNIT TABLET PO SCH ×2 (08:59→11:35)
[2016-08-17] MEDS: CETIRIZINE HCL 10 MG TABLET PO SCH (08:59)
[2016-08-17] MEDS: ASPIRIN ENTERIC COATED 81 MG TABLET.DR. PO SCH (08:59)
[2016-08-17] MEDS: HYDROcodone/APAP 5/325MG 1 TAB TABLET PO PRN ×2 (09:02→17:31)
[2016-08-17] MEDS: POLYVINYL ALCOHOL 1.4% OPHTH SOLUTION 15ML BOTTLE. OU SCH ×2 (09:02→19:35)
[2016-08-17 09:42] LABS: BASO # 0.1 x10^3/uL (0.0-0.2); BASO % 0 % (0-3); EOS # 0.4 x10^3/uL (0.0-0.7); EOS % 2 % (0-3); HEMATOCRIT 43.2 % (39.0-53.0); HEMOGLOBIN 14.3 g/dL (13.0-17.5); LYMPH # 1.9 x10^3/uL (1.0-4.8); LYMPH % 12 % (24-48); MEAN CORPUSCULAR HEMOGLOBIN 32 pg (25-35); MEAN CORPUSCULAR HGB CONC 33 g/dL (31-37); MEAN CORPUSCULAR VOLUME 97 fL (79-100); MONO # 0.9 x10^3/uL (0.0-1.1); MONO % 6 % (0-9); NEUT # 12.6 x10^3uL (1.8-7.7); NEUT % 80 % (31-73); PLATELET COUNT 192 x10^3/uL (140-400); RED BLOOD COUNT 4.43 x10^6/uL (4.30-5.70); RED CELL DISTRIBUTION WIDTH 13.8 % (11.5-14.5); WHITE BLOOD COUNT 15.9 x10^3/uL (4.0-11.0)
[2016-08-17 09:55] LABS: ALBUMIN 3.9 g/dL (3.4-5.0); ALBUMIN/GLOBULIN RATIO 1.1 (1.0-1.7); CALCIUM 9.3 mg/dL (8.5-10.1); GFR 71.5; POTASSIUM 3.8 mmol/L (3.5-5.1); TOTAL BILIRUBIN 0.8 mg/dL (0.2-1.0); TOTAL PROTEIN 7.5 g/dL (6.4-8.2)
[2016-08-17 10:50] LABS: % BANDS 5 % (0-9); % BASOS 0 % (0-3); % EOS 2 % (0-5); % LYMPHS 11 % (24-48); % MONOS 4 % (0-10); % SEGS 75 % (35-66); PLT ESTIMATE ADEQUATE (ADEQUATE); TOXIC GRANULATION PRESENT
[2016-08-17 12:34] LABS: % ATYL 3 % (0-0)
[2016-08-17 15:51] VITALS: BP 103/56
[2016-08-17] MEDS: LORazepam 0.5 MG TABLET PO PRN (19:12)
[2016-08-17] MEDS: MELATONIN 3 MG TABLET PO SCH (19:35)
[2016-08-17] MEDS: MIRTAZAPINE 7.5 MG TABLET. PO SCH (19:36)
--- NOTE | 2016-08-17 20:20 | PDOC ---
Exam Ciro Demential Exam: Ciro Note: Please also refer to the separate dictated note~for this date of service dictated separately.~Patient seen individually. Discussed the patient with Nursing staff reviewed the chart.~Reviewed interim history and current functioning. Reviewed vital signs,~Labs/ Radiology~and current medications noted below. Continue current treatment with the changes noted in the dictated addendum note Assessment: Vital Signs: Vital Signs Date Time Temp Pulse Resp B/P (MAP) Pulse Ox O2 Delivery O2 Flow Rate FiO2 08/17/16 17:31 97 08/17/16 15:51 98.2 77 18 103/56 (72) 08/16/16 22:30 Room Air I&O Intake and Output 08/17/16 07:00 Intake Total 720 ml Balance 720 ml Intake Oral 720 ml # Voids 3 Labs: Laboratory Tests Test 08/17/16 09:22 White Blood Count 15.9 x10^3/uL (4.0-11.0) #H Red Blood Count 4.43 x10^6/uL (4.30-5.70) Hemoglobin 14.3 g/dL (13.0-17.5) Hematocrit 43.2 % (39.0-53.0) Mean Corpuscular Volume 97 fL (79-100) Mean Corpuscular Hemoglobin 32 pg (25-35) Mean Corpuscular Hemoglobin Concent 33 g/dL (31-37) Red Cell Distribution Width 13.8 % (11.5-14.5) Platelet Count 192 x10^3/uL (140-400) Neutrophils (%) (Auto) 80 % (31-73) H Lymphocytes (%) (Auto) 12 % (24-48) L Monocytes (%) (Auto) 6 % (0-9) Eosinophils (%) (Auto) 2 % (0-3) Basophils (%) (Auto) 0 % (0-3) Neutrophils # (Auto) 12.6 x10^3uL (1.8-7.7) H Lymphocytes # (Auto) 1.9 x10^3/uL (1.0-4.8) Monocytes # (Auto) 0.9 x10^3/uL (0.0-1.1) Eosinophils # (Auto) 0.4 x10^3/uL (0.0-0.7) Basophils # (Auto) 0.1 x10^3/uL (0.0-0.2) Segmented Neutrophils % 75 % (35-66) H Band Neutrophils % 5 % (0-9) Lymphocytes % 11 % (24-48) L Atypical Lymphocytes % (Manual) 3 % (0-0) H Monocytes % 4 % (0-10) Eosinophils % 2 % (0-5) Basophils % 0 % (0-3) Toxic Granulation Present Platelet Estimate Adequate (ADEQUATE) Sodium Level 142 mmol/L (136-145) Potassium Level 3.8 mmol/L (3.5-5.1) Chloride Level 104 mmol/L (98-107) Carbon Dioxide Level 31 mmol/L (21-32) Anion Gap 7 (6-14) Blood Urea Nitrogen 30 mg/dL (8-26) H Creatinine 1.0 mg/dL (0.7-1.3) Estimated GFR (Cockcroft-Gault) 71.5 BUN/Creatinine Ratio 30 (6-20) H Glucose Level 146 mg/dL (70-99) H Calcium Level 9.3 mg/dL (8.5-10.1) Magnesium Level 2.0 mg/dL (1.8-2.4) Total Bilirubin 0.8 mg/dL (0.2-1.0) Aspartate Amino Transferase (AST) 45 U/L (15-37) H Alanine Aminotransferase (ALT) 52 U/L (16-63) Alkaline Phosphatase 81 U/L (46-116) Total Protein 7.5 g/dL (6.4-8.2) Albumin 3.9 g/dL (3.4-5.0) Albumin/Globulin Ratio 1.1 (1.0-1.7) Current Medications: Meds: Current Medications Acetaminophen (Tylenol) 650 mg PRN Q6HRS PRN PO MILD PAIN / TEMP; Start at 20:45 Multi-Ingredient Ointment (Analgesic [place]) 1 josé antonio PRN QID PRN TP MUSCLE PAIN; Start 08/11/16 at 20:45 Al Hydroxide/Mg Hydroxide (Mylanta Plus Xs) 15 ml PRN AFTMEALHC PRN PO DYSPEPSIA; Start 08/11/16 at 20:45 Magnesium Hydroxide (Milk Of Magnesia) 2,400 mg PRN QHS PRN PO CONSTIPATION; Start 08/11/16 at 20:45 Lorazepam (Ativan) 0.5 mg PRN Q6HRS PRN PO ANXIETY / AGITATION Last administered on 08/17/16 19:12; Start 08/11/16 at 20:45 Sertraline HCl (Zoloft) 50 mg DAILY PO Last administered on 08/17/16 08:59; Start 08/12/16 at 09:00 Aspirin (Aspirin Enteric Coated) 81 mg DAILY PO Last administered on 08/17/16 08:59; Start 08/12/16 at 09:00 Celecoxib (Celebrex) 200 mg DAILY PO Last administered on 08/17/16 08:59; Start 08/12/16 at 09:00 Cetirizine HCl (Zyrtec) 10 mg DAILY PO Last administered on 08/17/16 08:59; Start 08/12/16 at 09:00 Docusate Sodium (Colace) 100 mg PRN DAILY PRN PO CONSTIPATION; Start 08/11/16 at 21:00 Acetaminophen/ Hydrocodone Bitart (Lortab 5/325) 1 tab PRN Q4HRS PRN PO SEVERE PAIN Last administered on 08/17/16 17:31; Start 08/11/16 at 21:00 Ibuprofen (Motrin) 400 mg PRN Q6HRS PRN PO MODERATE PAIN; Start 08/11/16 at 21: 00 Non-Formulary Medication 1 cap DAILY PO [facility]; Start 08/12/16 at 09:00; Status UNV Multivitamins/ Calcium (Thera-M Plus) 1 tab DAILY PO Last administered on 08:59; Start 08/12/16 at 09:00 Artificial Tears (Artificial Tears) 1 drop BID OU Last administered on 19:35; Start 08/12/16 at 09:00 Guaifenesin (Mucinex Er) 600 mg BID PO Last administered on 08/17/16 19:36; Start 08/12/16 at 21:00 Melatonin 3 mg QHS PO Last administered on 08/17/16 19:35; Start 08/12/16 at 21 :00 Olanzapine (Zyprexa Zydis) 2.5 mg PRN Q2HR PRN PO PSYCHOSIS Last administered on 08/17/16 19:13; Start 08/12/16 at 19:45 Buspirone HCl (Buspar) 5 mg BID PO Last administered on 08/17/16 19:35; Start 08/13/16 at 21:00 Vitamin D (Vitamin D3) 2,000 unit BIDACBL PO Last administered on 08/17/16 11: 35; Start 08/15/16 at 08:00 Mirtazapine (Remeron) 7.5 mg QHS PO Last administered on 08/17/16 19:36; Start 08/16/16 at 21:00 Active Scripts Active Reported Mucinex (Guaifenesin) 600 Mg Tablet.er 600 Mg PO BID Melatonin 3 Mg Tablet (Melatonin/Pyridoxine) 1 Each Tablet 3 Mg PO QHS Glucosamine Complex-Msm Cap (Gluc Julio/Msm/Magnesium/Vit C) 1 Each Capsule 1 Cap PO DAILY Ativan (Lorazepam) 0.5 Mg Tablet 0.5 Mg PO PRN Q6HRS PRN Systane Balance (Propylene Glycol) 10 Ml Drops 1 Drop OU BID Colace (Docusate Sodium) 100 Mg Capsule 100 Mg PO PRN DAILY PRN [place] 5-325 Tablet (Hydrocodone Bit/Acetaminophen) 1 Each Tablet 1 Tab PO PRN Q4HRS PRN [place] Suspension (Mag Hydrox/Al Hydrox/Simeth) 355 Ml Oral.susp 30 Ml PO PRN QID PRN Ibuprofen 400 Mg Tablet 400 Mg PO PRN Q6HRS PRN Cetirizine Hcl 10 Mg Tablet 10 Mg PO DAILY Celebrex (Celecoxib) 200 Mg Capsule 200 Mg PO DAILY Multivitamins (Multivitamin) 1 Each Tablet 1 Tab PO DAILY Zoloft (Sertraline Hcl) 50 Mg Tablet 50 Mg PO DAILY Aspir-Low (Aspirin) 81 Mg Tablet.dr 81 Mg PO DAILY Diagnosis: Problems: (1) Anxiety disorder (2) Dementia in Alzheimer's disease with delusions (3) Dementia in Alzheimer's disease with depression (4) Dementia, vascular, with delusions (5) Dementia, vascular, with depression (6) Impulse control disorder NEERU CALIX MD August 17, 2016 20:20
[2016-08-18 06:33] VITALS: BP 127/70
[2016-08-18] MEDS: SERTRALINE 50 MG TABLET. PO SCH (08:28)
[2016-08-18] MEDS: MULTIVITAMIN with MINERAL TABLET. PO SCH (08:29)
[2016-08-18] MEDS: CELECOXIB 200 MG CAPSULE PO SCH (08:29)
[2016-08-18] MEDS: CHOLECALCIFEROL (VITAMIN D3) 1,000 UNIT TABLET PO SCH ×2 (08:29→11:30)
[2016-08-18] MEDS: ASPIRIN ENTERIC COATED 81 MG TABLET.DR. PO SCH (08:29)
[2016-08-18] MEDS: CETIRIZINE HCL 10 MG TABLET PO SCH (08:29)
[2016-08-18] MEDS: POLYVINYL ALCOHOL 1.4% OPHTH SOLUTION 15ML BOTTLE. OU SCH ×2 (08:29→19:45)
[2016-08-18] MEDS: busPIRone 5 MG TABLET. PO SCH ×2 (08:29→19:44)
[2016-08-18 15:48] VITALS: BP 108/61
[2016-08-18] MEDS: MIRTAZAPINE 7.5 MG TABLET. PO SCH (19:44)
[2016-08-18] MEDS: MELATONIN 3 MG TABLET PO SCH (19:44)
--- NOTE | 2016-08-18 20:10 | PDOC ---
Exam Ciro Demential Exam: Ciro Note: Please also refer to the separate dictated note~for this date of service dictated separately.~Patient seen individually. Discussed the patient with Nursing staff reviewed the chart.~Reviewed interim history and current functioning. Reviewed vital signs,~Labs/ Radiology~and current medications noted below. Continue current treatment with the changes noted in the dictated addendum note Assessment: Vital Signs: Vital Signs Date Time Temp Pulse Resp B/P (MAP) Pulse Ox O2 Delivery O2 Flow Rate FiO2 08/18/16 15:48 97.1 71 20 108/61 (77) 98 08/16/16 22:30 Room Air I&O Intake and Output 08/18/16 07:00 Intake Total 1080 ml Balance 1080 ml Intake Oral 1080 ml # Voids 2 Current Medications: Meds: Current Medications Acetaminophen (Tylenol) 650 mg PRN Q6HRS PRN PO MILD PAIN / TEMP; Start at 20:45 Multi-Ingredient Ointment (Analgesic [place]) 1 josé antonio PRN QID PRN TP MUSCLE PAIN; Start 08/11/16 at 20:45 Al Hydroxide/Mg Hydroxide (Mylanta Plus Xs) 15 ml PRN AFTMEALHC PRN PO DYSPEPSIA; Start 08/11/16 at 20:45 Magnesium Hydroxide (Milk Of Magnesia) 2,400 mg PRN QHS PRN PO CONSTIPATION; Start 08/11/16 at 20:45 Lorazepam (Ativan) 0.5 mg PRN Q6HRS PRN PO ANXIETY / AGITATION Last administered on 08/17/16 19:12; Start 08/11/16 at 20:45 Sertraline HCl (Zoloft) 50 mg DAILY PO Last administered on 08/18/16 08:28; Start 08/12/16 at 09:00 Aspirin (Aspirin Enteric Coated) 81 mg DAILY PO Last administered on 08/18/16 08:29; Start 08/12/16 at 09:00 Celecoxib (Celebrex) 200 mg DAILY PO Last administered on 08/18/16 08:29; Start 08/12/16 at 09:00 Cetirizine HCl (Zyrtec) 10 mg DAILY PO Last administered on 08/18/16 08:29; Start 08/12/16 at 09:00 Docusate Sodium (Colace) 100 mg PRN DAILY PRN PO CONSTIPATION; Start 08/11/16 at 21:00 Acetaminophen/ Hydrocodone Bitart (Lortab 5/325) 1 tab PRN Q4HRS PRN PO SEVERE PAIN Last administered on 08/17/16 17:31; Start 08/11/16 at 21:00 Ibuprofen (Motrin) 400 mg PRN Q6HRS PRN PO MODERATE PAIN; Start 08/11/16 at 21: 00 Non-Formulary Medication 1 cap DAILY PO [facility]; Start 08/12/16 at 09:00; Status UNV Multivitamins/ Calcium (Thera-M Plus) 1 tab DAILY PO Last administered on 08:29; Start 08/12/16 at 09:00 Artificial Tears (Artificial Tears) 1 drop BID OU Last administered on 19:45; Start 08/12/16 at 09:00 Guaifenesin (Mucinex Er) 600 mg BID PO Last administered on 08/18/16 19:44; Start 08/12/16 at 21:00 Melatonin 3 mg QHS PO Last administered on 08/18/16 19:44; Start 08/12/16 at 21 :00 Olanzapine (Zyprexa Zydis) 2.5 mg PRN Q2HR PRN PO PSYCHOSIS Last administered on 08/17/16 19:13; Start 08/12/16 at 19:45 Buspirone HCl (Buspar) 5 mg BID PO Last administered on 08/18/16 19:44; Start 08/13/16 at 21:00 Vitamin D (Vitamin D3) 2,000 unit BIDACBL PO Last administered on 08/18/16 11: 30; Start 08/15/16 at 08:00 Mirtazapine (Remeron) 7.5 mg QHS PO Last administered on 08/18/16 19:44; Start 08/16/16 at 21:00 Active Scripts Active Reported Mucinex (Guaifenesin) 600 Mg Tablet.er 600 Mg PO BID Melatonin 3 Mg Tablet (Melatonin/Pyridoxine) 1 Each Tablet 3 Mg PO QHS Glucosamine Complex-Msm Cap (Gluc Julio/Msm/Magnesium/Vit C) 1 Each Capsule 1 Cap PO DAILY Ativan (Lorazepam) 0.5 Mg Tablet 0.5 Mg PO PRN Q6HRS PRN Systane Balance (Propylene Glycol) 10 Ml Drops 1 Drop OU BID Colace (Docusate Sodium) 100 Mg Capsule 100 Mg PO PRN DAILY PRN [place] 5-325 Tablet (Hydrocodone Bit/Acetaminophen) 1 Each Tablet 1 Tab PO PRN Q4HRS PRN [place]ox Suspension (Mag Hydrox/Al Hydrox/Simeth) 355 Ml Oral.susp 30 Ml PO PRN QID PRN Ibuprofen 400 Mg Tablet 400 Mg PO PRN Q6HRS PRN Cetirizine Hcl 10 Mg Tablet 10 Mg PO DAILY Celebrex (Celecoxib) 200 Mg Capsule 200 Mg PO DAILY Multivitamins (Multivitamin) 1 Each Tablet 1 Tab PO DAILY Zoloft (Sertraline Hcl) 50 Mg Tablet 50 Mg PO DAILY Aspir-Low (Aspirin) 81 Mg Tablet. 81 Mg PO DAILY Diagnosis: Problems: (1) Anxiety disorder (2) Dementia in Alzheimer's disease with delusions (3) Dementia in Alzheimer's disease with depression (4) Dementia, vascular, with delusions (5) Dementia, vascular, with depression (6) Impulse control disorder NEERU CALIX MD August 18, 2016 20:10
--- NOTE | 2016-08-19 02:02 | PN ---
DATE: 08/16/2016 This late entry for 08/16/2016 covers elements not covered in my initial note. SUBJECTIVE: Overall, the patient remains confused, has to be reminded to use the walker, received some Lortab previous night, slept just 3-3/4 hours, unsteady in his gait. REVIEW OF SYSTEMS: No CV, , pulmonary, eye, ENT system symptoms on review. Reliability poor. MENTAL STATUS EXAM: Oriented to himself. Insight, judgment, recent and remote memory, attention, concentration, fund of knowledge poor, consistent with his diagnosis mentioned in my initial note. IMPRESSION: Major neurocognitive disorder, Alzheimer, vascular with depression, delusion, behavioral disturbance. Rest diagnosis unchanged. PLAN: Start Remeron 7.5 mg at bedtime, which should help both anxiety and insomnia. Maintain the rest of the psychotropics mentioned in my initial note including Zoloft, Ativan p.r.n., Zyprexa p.r.n., BuSpar and melatonin. NEERU CALIX MD DR: CHIDI/cristi JOB#: [id number] / [id number]
--- NOTE | 2016-08-19 02:06 | PN ---
DATE: 08/17/2016 This late entry for 08/17/2016 covers elements not covered in my initial note. SUBJECTIVE: The patient was staffed at a treatment team meeting with the entire team and the patient's son Angelito attending. Lengthy discussion about diagnosis, current medications, progress, prognosis, discharge, aftercare plans. The patient slept 7 hours, which is quite an improvement. Appetite 90%. REVIEW OF SYSTEMS: Ambulation impaired, often forgets to use the walker. No CV, , pulmonary, eye, ENT system symptoms on review. MENTAL STATUS EXAM: Oriented to himself. Insight, judgment, recent and remote memory, attention, concentration, fund of knowledge poor, consistent with his diagnosis mentioned in my initial note. PLAN: Continue psychotropics mentioned in my initial note. Adjust as clinically indicated. MAN Marlon CALIX MD DR: CHIDI/cristi JOB#: [id number] / [id number]
[2016-08-19 06:34] VITALS: BP 121/75
[2016-08-19] MEDS: ASPIRIN ENTERIC COATED 81 MG TABLET.DR. PO SCH (09:16)
[2016-08-19] MEDS: CHOLECALCIFEROL (VITAMIN D3) 1,000 UNIT TABLET PO SCH ×2 (09:16→12:15)
[2016-08-19] MEDS: CETIRIZINE HCL 10 MG TABLET PO SCH (09:16)
[2016-08-19] MEDS: SERTRALINE 50 MG TABLET. PO SCH (09:16)
[2016-08-19] MEDS: MULTIVITAMIN with MINERAL TABLET. PO SCH (09:16)
[2016-08-19] MEDS: CELECOXIB 200 MG CAPSULE PO SCH (09:16)
[2016-08-19] MEDS: busPIRone 5 MG TABLET. PO SCH ×2 (09:16→20:10)
[2016-08-19] MEDS: POLYVINYL ALCOHOL 1.4% OPHTH SOLUTION 15ML BOTTLE. OU SCH ×2 (09:16→20:10)
[2016-08-19 09:30] LABS: BASO % 0 % (0-3); EOS # 0.2 x10^3/uL (0.0-0.7); EOS % 1 % (0-3); HEMATOCRIT 38.3 % (39.0-53.0); HEMOGLOBIN 12.8 g/dL (13.0-17.5); LYMPH # 2.4 x10^3/uL (1.0-4.8); LYMPH % 19 % (24-48); MEAN CORPUSCULAR HEMOGLOBIN 32 pg (25-35); MEAN CORPUSCULAR HGB CONC 33 g/dL (31-37); MEAN CORPUSCULAR VOLUME 97 fL (79-100); MONO # 1.3 x10^3/uL (0.0-1.1); MONO % 10 % (0-9); NEUT # 9.2 x10^3uL (1.8-7.7); NEUT % 70 % (31-73); PLATELET COUNT 195 x10^3/uL (140-400); RED BLOOD COUNT 3.97 x10^6/uL (4.30-5.70); RED CELL DISTRIBUTION WIDTH 13.2 % (11.5-14.5); WHITE BLOOD COUNT 13.2 x10^3/uL (4.0-11.0)
[2016-08-19] MEDS: LORazepam 2 MG/ML VIAL IM SCH (14:36)
[2016-08-19] MEDS: HALOPERIDOL LACT 5 MG/ML VIAL. IM SCH (14:37)
[2016-08-19 16:09] VITALS: BP 117/79
--- NOTE | 2016-08-19 19:06 | PDOC ---
Exam Ciro Demential Exam: Ciro Note: Please also refer to the separate dictated note~for this date of service dictated separately.~Patient seen individually. Discussed the patient with Nursing staff reviewed the chart.~Reviewed interim history and current functioning. Reviewed vital signs,~Labs/ Radiology~and current medications noted below. Continue current treatment with the changes noted in the dictated addendum note Assessment: Vital Signs: Vital Signs Date Time Temp Pulse Resp B/P (MAP) Pulse Ox O2 Delivery O2 Flow Rate FiO2 08/19/16 16:09 99.6 99 20 117/79 (92) 98 Room Air I&O Intake and Output 08/19/16 07:00 Intake Total 840 ml Balance 840 ml Intake Oral 840 ml # Voids 2 Labs: Laboratory Tests Test 08/19/16 09:12 White Blood Count 13.2 x10^3/uL (4.0-11.0) H Red Blood Count 3.97 x10^6/uL (4.30-5.70) L Hemoglobin 12.8 g/dL (13.0-17.5) L Hematocrit 38.3 % (39.0-53.0) L Mean Corpuscular Volume 97 fL (79-100) Mean Corpuscular Hemoglobin 32 pg (25-35) Mean Corpuscular Hemoglobin Concent 33 g/dL (31-37) Red Cell Distribution Width 13.2 % (11.5-14.5) Platelet Count 195 x10^3/uL (140-400) Neutrophils (%) (Auto) 70 % (31-73) Lymphocytes (%) (Auto) 19 % (24-48) L Monocytes (%) (Auto) 10 % (0-9) H Eosinophils (%) (Auto) 1 % (0-3) Basophils (%) (Auto) 0 % (0-3) Neutrophils # (Auto) 9.2 x10^3uL (1.8-7.7) H Lymphocytes # (Auto) 2.4 x10^3/uL (1.0-4.8) Monocytes # (Auto) 1.3 x10^3/uL (0.0-1.1) H Eosinophils # (Auto) 0.2 x10^3/uL (0.0-0.7) Basophils # (Auto) 0.0 x10^3/uL (0.0-0.2) Current Medications: Meds: Current Medications Acetaminophen (Tylenol) 650 mg PRN Q6HRS PRN PO MILD PAIN / TEMP; Start at 20:45 Multi-Ingredient Ointment (Analgesic [place]) 1 josé antonio PRN QID PRN TP MUSCLE PAIN; Start 08/11/16 at 20:45 Al Hydroxide/Mg Hydroxide (Mylanta Plus Xs) 15 ml PRN AFTMEALHC PRN PO DYSPEPSIA; Start 08/11/16 at 20:45 Magnesium Hydroxide (Milk Of Magnesia) 2,400 mg PRN QHS PRN PO CONSTIPATION; Start 08/11/16 at 20:45 Lorazepam (Ativan) 0.5 mg PRN Q6HRS PRN PO ANXIETY / AGITATION Last administered on 08/17/16 19:12; Start 08/11/16 at 20:45; Stop 08/19/16 at 14:29; Status DC Sertraline HCl (Zoloft) 50 mg DAILY PO Last administered on 08/19/16 09:16; Start 08/12/16 at 09:00 Aspirin (Aspirin Enteric Coated) 81 mg DAILY PO Last administered on 08/19/16 09:16; Start 08/12/16 at 09:00 Celecoxib (Celebrex) 200 mg DAILY PO Last administered on 08/19/16 09:16; Start 08/12/16 at 09:00 Cetirizine HCl (Zyrtec) 10 mg DAILY PO Last administered on 08/19/16 09:16; Start 08/12/16 at 09:00 Docusate Sodium (Colace) 100 mg PRN DAILY PRN PO CONSTIPATION; Start 08/11/16 at 21:00 Acetaminophen/ Hydrocodone Bitart (Lortab 5/325) 1 tab PRN Q4HRS PRN PO SEVERE PAIN Last administered on 08/17/16 17:31; Start 08/11/16 at 21:00 Ibuprofen (Motrin) 400 mg PRN Q6HRS PRN PO MODERATE PAIN; Start 08/11/16 at 21: 00 Non-Formulary Medication 1 cap DAILY PO [facility]; Start 08/12/16 at 09:00; Status UNV Multivitamins/ Calcium (Thera-M Plus) 1 tab DAILY PO Last administered on 09:16; Start 08/12/16 at 09:00 Artificial Tears (Artificial Tears) 1 drop BID OU Last administered on 09:16; Start 08/12/16 at 09:00 Guaifenesin (Mucinex Er) 600 mg BID PO Last administered on 08/18/16 19:44; Start 08/12/16 at 21:00 Melatonin 3 mg QHS PO Last administered on 08/18/16 19:44; Start 08/12/16 at 21 :00 Olanzapine (Zyprexa Zydis) 2.5 mg PRN Q2HR PRN PO PSYCHOSIS Last administered on 08/17/16 19:13; Start 08/12/16 at 19:45 Buspirone HCl (Buspar) 5 mg BID PO Last administered on 08/19/16 09:16; Start 08/13/16 at 21:00 Vitamin D (Vitamin D3) 2,000 unit BIDACBL PO Last administered on 08/19/16 12: 15; Start 08/15/16 at 08:00 Mirtazapine (Remeron) 7.5 mg QHS PO Last administered on 08/18/16 19:44; Start 08/16/16 at 21:00 Lorazepam (Ativan) 0.5 mg DAILY IM Last administered on 08/19/16 14:36; Start 08/19/16 at 14:45 Haloperidol Lactate (Haldol) 2 mg DAILY IM Last administered on 08/19/16 14:37 ; Start 08/19/16 at 14:45 Lorazepam (Ativan) 0.5 mg PRN Q6HRS PRN TP ANXIETY / AGITATION; Start 08/22/16 at 14:30 Active Scripts Active Reported Mucinex (Guaifenesin) 600 Mg Tablet.er 600 Mg PO BID Melatonin 3 Mg Tablet (Melatonin/Pyridoxine) 1 Each Tablet 3 Mg PO QHS Glucosamine Complex-Msm Cap (Gluc Julio/Msm/Magnesium/Vit C) 1 Each Capsule 1 Cap PO DAILY Ativan (Lorazepam) 0.5 Mg Tablet 0.5 Mg PO PRN Q6HRS PRN Systane Balance (Propylene Glycol) 10 Ml Drops 1 Drop OU BID Colace (Docusate Sodium) 100 Mg Capsule 100 Mg PO PRN DAILY PRN [place] 5-325 Tablet (Hydrocodone Bit/Acetaminophen) 1 Each Tablet 1 Tab PO PRN Q4HRS PRN [place]ox Suspension (Mag Hydrox/Al Hydrox/Simeth) 355 Ml Oral.susp 30 Ml PO PRN QID PRN Ibuprofen 400 Mg Tablet 400 Mg PO PRN Q6HRS PRN Cetirizine Hcl 10 Mg Tablet 10 Mg PO DAILY Celebrex (Celecoxib) 200 Mg Capsule 200 Mg PO DAILY Multivitamins (Multivitamin) 1 Each Tablet 1 Tab PO DAILY Zoloft (Sertraline Hcl) 50 Mg Tablet 50 Mg PO DAILY Aspir-Low (Aspirin) 81 Mg Tablet.dr 81 Mg PO DAILY Diagnosis: Problems: (1) Anxiety disorder (2) Dementia in Alzheimer's disease with delusions (3) Dementia in Alzheimer's disease with depression (4) Dementia, vascular, with delusions (5) Dementia, vascular, with depression (6) Impulse control disorder NEERU CALIX MD August 19, 2016 19:06
[2016-08-19 19:47] VITALS: BP 118/57
[2016-08-19] MEDS: MELATONIN 3 MG TABLET PO SCH (20:10)
[2016-08-19] MEDS: MIRTAZAPINE 7.5 MG TABLET. PO SCH (20:10)
[2016-08-19] MEDS: HYDROcodone/APAP 5/325MG 1 TAB TABLET PO PRN (21:48)
--- NOTE | 2016-08-19 23:44 | RAD ---
PROCEDURE AP pelvis and frog-leg right hip. HISTORY Right lower extremity inverted and painful and cannot bear weight. History of hip dislocation. COMPARISON None. FINDINGS There is right hip arthroplasty. The femoral component is dislocated with the femoral head positioned superior and lateral to the acetabular cup. No acute fracture of bone is seen. The left hip joint is intact on single view, mild degenerative changes. The mineralization is normal. Phleboliths right pelvis. IMPRESSION The right hip arthroplasty is dislocated. Electronically signed by: Jeevan Leung MD (August 19, 2016 23:43:20)
--- NOTE | 2016-08-20 00:07 | RAD ---
PROCEDURE AP chest. HISTORY Fever of unknown origin. Leukocytosis. Dislocated hip. COMPARISON None. FINDINGS There is left chest dual chamber pacer. The cardiac size is normal. Lungs are clear. No pleural effusion or pneumothorax. No acute bone abnormality. IMPRESSION No acute cardiopulmonary process. Electronically signed by: Jeevan Leung MD (August 20, 2016 00:06:13)
[2016-08-20 06:32] VITALS: BP 158/83
[2016-08-20] MEDS: HYDROcodone/APAP 5/325MG 1 TAB TABLET PO PRN (09:23)
[2016-08-20] MEDS: CHOLECALCIFEROL (VITAMIN D3) 1,000 UNIT TABLET PO SCH ×2 (09:23→12:00)
[2016-08-20] MEDS: busPIRone 5 MG TABLET. PO SCH ×3 (09:23→19:49)
[2016-08-20] MEDS: CETIRIZINE HCL 10 MG TABLET PO SCH (09:23)
[2016-08-20] MEDS: POLYVINYL ALCOHOL 1.4% OPHTH SOLUTION 15ML BOTTLE. OU SCH ×2 (09:23→19:50)
[2016-08-20] MEDS: ASPIRIN ENTERIC COATED 81 MG TABLET.DR. PO SCH (09:23)
[2016-08-20] MEDS: SERTRALINE 50 MG TABLET. PO SCH (09:23)
[2016-08-20] MEDS: CELECOXIB 200 MG CAPSULE PO SCH (09:23)
[2016-08-20] MEDS: MULTIVITAMIN with MINERAL TABLET. PO SCH (09:23)
[2016-08-20] MEDS: LORazepam 2 MG/ML VIAL IM SCH (12:15)
[2016-08-20] MEDS: MORPHINE SULFATE 20 MG/ML CONC SOLUTION. SL PRN ×2 (13:55→20:34)
[2016-08-20] MEDS ORDERED: ACETAMINOPHEN 325 MG TABLET PO PRN (14:00)
[2016-08-20] MEDS: HALOPERIDOL LACT 5 MG/ML VIAL. IM SCH (15:31)
[2016-08-20 15:40] VITALS: BP 111/64
--- NOTE | 2016-08-20 19:45 | PDOC ---
Exam Ciro Demential Exam: Ciro Note: Please also refer to the separate dictated note~for this date of service dictated separately.~Patient seen individually. Discussed the patient with Nursing staff reviewed the chart.~Reviewed interim history and current functioning. Reviewed vital signs,~Labs/ Radiology~and current medications noted below. Continue current treatment with the changes noted in the dictated addendum note Assessment: Vital Signs: Vital Signs Date Time Temp Pulse Resp B/P (MAP) Pulse Ox O2 Delivery O2 Flow Rate FiO2 08/20/16 15:40 97.5 64 20 111/64 (80) 97 08/19/16 22:48 Room Air I&O Intake and Output 08/20/16 07:00 Intake Total 360 ml Balance 360 ml Intake Oral 360 ml # Voids 2 Current Medications: Meds: Current Medications Acetaminophen (Tylenol) 650 mg PRN Q6HRS PRN PO MILD PAIN / TEMP; Start at 20:45; Stop 08/20/16 at 10:11; Status DC Multi-Ingredient Ointment (Analgesic [place]) 1 josé antonio PRN QID PRN TP MUSCLE PAIN; Start 08/11/16 at 20:45 Al Hydroxide/Mg Hydroxide (Mylanta Plus Xs) 15 ml PRN AFTMEALHC PRN PO DYSPEPSIA; Start 08/11/16 at 20:45 Magnesium Hydroxide (Milk Of Magnesia) 2,400 mg PRN QHS PRN PO CONSTIPATION; Start 08/11/16 at 20:45 Lorazepam (Ativan) 0.5 mg PRN Q6HRS PRN PO ANXIETY / AGITATION Last administered on 08/17/16 19:12; Start 08/11/16 at 20:45; Stop 08/19/16 at 14:29; Status DC Sertraline HCl (Zoloft) 50 mg DAILY PO Last administered on 08/20/16 09:23; Start 08/12/16 at 09:00 Aspirin (Aspirin Enteric Coated) 81 mg DAILY PO Last administered on 08/20/16 09:23; Start 08/12/16 at 09:00; Status Future Hold Celecoxib (Celebrex) 200 mg DAILY PO Last administered on 08/20/16 09:23; Start 08/12/16 at 09:00; Status Future Hold Cetirizine HCl (Zyrtec) 10 mg DAILY PO Last administered on 08/20/16 09:23; Start 08/12/16 at 09:00 Docusate Sodium (Colace) 100 mg PRN DAILY PRN PO CONSTIPATION; Start 08/11/16 at 21:00 Acetaminophen/ Hydrocodone Bitart (Lortab 5/325) 1 tab PRN Q4HRS PRN PO SEVERE PAIN Last administered on 08/20/16 09:23; Start 08/11/16 at 21:00 Ibuprofen (Motrin) 400 mg PRN Q6HRS PRN PO MODERATE PAIN; Start 08/11/16 at 21: 00; Stop 08/20/16 at 10:11; Status DC Non-Formulary Medication 1 cap DAILY PO [facility]; Start 08/12/16 at 09:00; Status UNV Multivitamins/ Calcium (Thera-M Plus) 1 tab DAILY PO Last administered on 09:23; Start 08/12/16 at 09:00 Artificial Tears (Artificial Tears) 1 drop BID OU Last administered on 09:23; Start 08/12/16 at 09:00 Guaifenesin (Mucinex Er) 600 mg BID PO Last administered on 08/19/16 20:10; Start 08/12/16 at 21:00; Stop 08/20/16 at 10:11; Status DC Melatonin 3 mg QHS PO Last administered on 08/19/16 20:10; Start 08/12/16 at 21 :00 Olanzapine (Zyprexa Zydis) 2.5 mg PRN Q2HR PRN PO PSYCHOSIS Last administered on 08/17/16 19:13; Start 08/12/16 at 19:45 Buspirone HCl (Buspar) 5 mg BID PO Last administered on 08/19/16 20:10; Start 08/13/16 at 21:00; Stop 08/20/16 at 08:09; Status DC Vitamin D (Vitamin D3) 2,000 unit BIDACBL PO Last administered on 08/20/16 09: 23; Start 08/15/16 at 08:00 Mirtazapine (Remeron) 7.5 mg QHS PO Last administered on 08/19/16 20:10; Start 08/16/16 at 21:00 Lorazepam (Ativan) 0.5 mg DAILY IM Last administered on 08/20/16 12:15; Start 08/19/16 at 14:45 Haloperidol Lactate (Haldol) 2 mg DAILY IM Last administered on 08/20/16 15:31 ; Start 08/19/16 at 14:45 Lorazepam (Ativan) 0.5 mg PRN Q6HRS PRN TP ANXIETY / AGITATION; Start 08/22/16 at 14:30 Buspirone HCl (Buspar) 5 mg TID PO Last administered on 08/20/16 14:36; Start 08/20/16 at 09:00 Acetaminophen (Tylenol) 650 mg PRN TID PRN PO MILD PAIN / TEMP; Start 08/20/16 at 14:00 Morphine Sulfate (Roxanol Conc) 5 mg PRN Q4HRS PRN SL PAIN Last administered on 08/20/16 13:55; Start 08/20/16 at 13:45 Active Scripts Active Reported Mucinex (Guaifenesin) 600 Mg Tablet.er 600 Mg PO BID Melatonin 3 Mg Tablet (Melatonin/Pyridoxine) 1 Each Tablet 3 Mg PO QHS Glucosamine Complex-Msm Cap (Gluc Julio/Msm/Magnesium/Vit C) 1 Each Capsule 1 Cap PO DAILY Ativan (Lorazepam) 0.5 Mg Tablet 0.5 Mg PO PRN Q6HRS PRN Systane Balance (Propylene Glycol) 10 Ml Drops 1 Drop OU BID Colace (Docusate Sodium) 100 Mg Capsule 100 Mg PO PRN DAILY PRN [place] 5-325 Tablet (Hydrocodone Bit/Acetaminophen) 1 Each Tablet 1 Tab PO PRN Q4HRS PRN Mintox Suspension (Mag Hydrox/Al Hydrox/Simeth) 355 Ml Oral.susp 30 Ml PO PRN QID PRN Ibuprofen 400 Mg Tablet 400 Mg PO PRN Q6HRS PRN Cetirizine Hcl 10 Mg Tablet 10 Mg PO DAILY Celebrex (Celecoxib) 200 Mg Capsule 200 Mg PO DAILY Multivitamins (Multivitamin) 1 Each Tablet 1 Tab PO DAILY Zoloft (Sertraline Hcl) 50 Mg Tablet 50 Mg PO DAILY Aspir-Low (Aspirin) 81 Mg Tablet.dr 81 Mg PO DAILY Diagnosis: Problems: (1) Anxiety disorder (2) Dementia in Alzheimer's disease with delusions (3) Dementia in Alzheimer's disease with depression (4) Dementia, vascular, with delusions (5) Dementia, vascular, with depression (6) Impulse control disorder NEERU CALIX MD August 20, 2016 19:44
[2016-08-20] MEDS: MELATONIN 3 MG TABLET PO SCH (19:49)
[2016-08-20] MEDS: MIRTAZAPINE 7.5 MG TABLET. PO SCH (19:49)
--- NOTE | 2016-08-20 19:55 | PN ---
DATE: 08/18/2016 PSYCHIATRIC PROGRESS NOTE This is late entry of 08/18/2016, covers elements not covered in my initial note. SUBJECTIVE: The patient slept 5 hours previous night, per nursing report, no PRNs noted, agitated in the afternoon, tired in the morning. Did well late in the evening on 08/18/2016. He will have a nocturnal desaturation study done per Dr. Matias. REVIEW OF SYSTEMS: No CV, , pulmonary, eye, ENT system symptoms on review. Reliability poor. MENTAL STATUS EXAMINATION: Oriented to himself, pleasant, verbal. Insight, judgment, recent and remote memory, attention, concentration, fund of knowledge poor, consistent with his diagnosis mentioned in my initial note. PLAN: Continue Zoloft, Ativan p.r.n., Zyprexa p.r.n., BuSpar, melatonin, Remeron, adjust as clinically indicated. NEERU CALIX MD DR: CHIDI/cristi JOB#: [id number] / [id number]
--- NOTE | 2016-08-20 20:20 | PN ---
DATE: 08/19/2016 PSYCHIATRIC PROGRESS NOTE This is late entry of 08/19/2016, covers elements not covered in my initial note. 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 Gait is unsteady, stumbling at times. REVIEW OF SYSTEMS: No CV, , pulmonary, eye system symptoms on review. Reliability poor. MENTAL STATUS EXAMINATION: Oriented to himself. Insight, judgment, recent and remote memory, attention, concentration, fund of knowledge poor, consistent with his diagnosis mentioned in my initial note. PLAN: Continue current psychotropics. I am trying to avoid the addition of any other atypical antipsychotic given his unsteady gait and agitation is only intermittent. We will have to see whether BuSpar might need to be increased, which in fact we will increase from 5 mg b.i.d. to 5 mg t.i.d. This should not cause any sedation or effect on the gait and hopefully will help some with the anxiety. MAN Marlon CALIX MD DR: CHIDI/cristi JOB#: [id number] / [id number]
--- NOTE | 2016-08-21 00:21 | PN ---
DATE: 08/20/2016 REASON FOR VISIT: Hip dislocation. HISTORY OF PRESENT ILLNESS: This is an 81-year-old gentleman who has had a right hip replacement since 2000. He does have a history of dislocation three times, one which was last week. He was taken down to [place] and the prosthesis was relocated; however, it has become dislocated again per x-ray and the patient has no history of falling, was not found on the floor. He is complaining of quite a lot of pain. OBJECTIVE: VITAL SIGNS: Blood pressure 158/83, temperature 97.3, pulse 74, respiratory rate 18, pulse ox 99% on room air. LUNGS: Clear. CARDIOVASCULAR: Regular rhythm and rate. EXTREMITIES: Right hip area a little bit swollen, foot is internally rotated, shortened, and pain. DIAGNOSTIC DATA: X-ray shows dislocation of the prosthesis. ASSESSMENT: Dislocated hip prosthesis, right; dementia with behavior disturbance; pain management. PLAN: Discussed with Dr. Brenner in the process of getting all the information for him to have a procedure to make sure it does not dislocate again. He is being treated with pain management with hydrocodone. We will hold the aspirin, deep venous thrombosis prophylaxis, and Celebrex; and we will get him to [place] as soon as the logistics have been completed. NAB CASANOVA DO DR: REX/cristi JOB#: [id number] / [id number]
[2016-08-21] MEDS: HYDROcodone/APAP 5/325MG 1 TAB TABLET PO PRN ×2 (00:51→12:58)
[2016-08-21] MEDS ORDERED: ACET325T9 PO (02:07)
[2016-08-21] MEDS ORDERED: CHOL10003 PO (02:09)
[2016-08-21] MEDS ORDERED: HALO5AMP2 IM (02:10)
[2016-08-21] MEDS ORDERED: LORA2VIA4 IM (02:11)
[2016-08-21] MEDS ORDERED: ATIVAN TOP (02:14)
[2016-08-21] MEDS ORDERED: MAGN400O7 PO (02:16)
[2016-08-21] MEDS ORDERED: METH29OI TP (02:16)
[2016-08-21] MEDS ORDERED: MIRT15TA3 PO (02:17)
[2016-08-21] MEDS ORDERED: MORP10DI10 PO (02:20)
[2016-08-21] MEDS ORDERED: OLAN5TAB5 PO (02:22)
[2016-08-21] MEDS ORDERED: BUSP5TAB PO (02:23)
[2016-08-21] MEDS: MORPHINE SULFATE 20 MG/ML CONC SOLUTION. SL PRN ×4 (02:40→15:25)
[2016-08-21 06:52] VITALS: BP 158/56
[2016-08-21] MEDS: POLYVINYL ALCOHOL 1.4% OPHTH SOLUTION 15ML BOTTLE. OU SCH (08:51)
[2016-08-21] MEDS: CHOLECALCIFEROL (VITAMIN D3) 1,000 UNIT TABLET PO SCH ×2 (08:51→11:30)
[2016-08-21] MEDS: MULTIVITAMIN with MINERAL TABLET. PO SCH (08:52)
[2016-08-21] MEDS: busPIRone 5 MG TABLET. PO SCH ×2 (08:52→12:58)
[2016-08-21] MEDS: CETIRIZINE HCL 10 MG TABLET PO SCH (08:53)
[2016-08-21] MEDS: SERTRALINE 50 MG TABLET. PO SCH (08:53)
[2016-08-21] MEDS ORDERED: QUET25TA5 PO (10:35)
[2016-08-21 16:06] VITALS: BP 174/71
[2016-08-21] MEDS ORDERED: MELA3TAB2 PO (16:08)
[2016-08-21] MEDS ORDERED: NALOXONE 0.4 MG/ML VIAL. ONE (16:28)
[2016-08-21 16:30] LABS: BASO # 0.1 x10^3/uL (0.0-0.2); BASO % 1 % (0-3); EOS # 0.1 x10^3/uL (0.0-0.7); EOS % 1 % (0-3); HEMOGLOBIN 13.7 g/dL (13.0-17.5); LYMPH # 1.2 x10^3/uL (1.0-4.8); LYMPH % 9 % (24-48); MEAN CORPUSCULAR HEMOGLOBIN 32 pg (25-35); MEAN CORPUSCULAR HGB CONC 33 g/dL (31-37); MEAN CORPUSCULAR VOLUME 97 fL (79-100); MONO # 0.9 x10^3/uL (0.0-1.1); MONO % 7 % (0-9); NEUT # 10.5 x10^3uL (1.8-7.7); NEUT % 82 % (31-73); PLATELET COUNT 225 x10^3/uL (140-400); RED BLOOD COUNT 4.32 x10^6/uL (4.30-5.70); WHITE BLOOD COUNT 12.8 x10^3/uL (4.0-11.0)
[2016-08-21 16:43] LABS: ALBUMIN 3.5 g/dL (3.4-5.0); ALBUMIN/GLOBULIN RATIO 0.9 (1.0-1.7); CALCIUM 9.2 mg/dL (8.5-10.1); GFR 71.5; POTASSIUM 4.1 mmol/L (3.5-5.1); TOTAL BILIRUBIN 0.7 mg/dL (0.2-1.0); TOTAL PROTEIN 7.6 g/dL (6.4-8.2)
--- NOTE | 2016-08-21 16:45 | EKG ---
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
--- NOTE | 2016-08-21 16:55 | RAD ---
Exam performed: One view chest. Indication: cough with fever Date of Service: 08/21/2016 5:55 PM Comparison: 08/19/16. Single AP upright portable view chest findings: Cardiomediastinal silhouette is within limits of normal. Bipolar pacemaker. No acute infiltrates, effusion or pneumothorax is detected. The bony structures are normal. Impression: No acute cardiopulmonary process is detected.
[2016-08-21 17:07] VITALS: BP 154/80
[2016-08-21 17:09] LABS: BGAS PH 7.38 (7.35-7.46)
[2016-08-21] MEDS ORDERED: ACETAMINOPHEN 325 MG SUPP.RECT PR PRN ×2 (17:30→17:45)
[2016-08-21 17:54] VITALS: BP 156/74
[2016-08-21 18:36] VITALS: BP 138/68
--- NOTE | 2016-08-22 00:31 | PN ---
DATE: 08/20/2016 PSYCHIATRIC PROGRESS NOTE This is a late entry of 08/20/2016 covers elements not covered in my initial note. SUBJECTIVE: The patient is dislocated his hip again and talked Elidia is addressing this and has talked to the patient's son that the planned transfer to [place] on 08/21/2016. He has received morphine p.r.n. for pain, remains restless, delusional and confused. REVIEW OF SYSTEMS: No CV, , pulmonary, eye system symptoms on review. Reliability poor. MENTAL STATUS EXAM: Oriented to himself. Insight, judgment, recent and remote memory, attention, concentration, fund of knowledge poor, consistent with his diagnosis mentioned in my initial note. PLAN: Continue current psychotropics. Adjust further as clinically indicated. Transfer to [place] on 08/21/2016. MAN Marlon CALIX MD DR: CHIDI/cristi JOB#: [id number] / [id number]
[2016-08-22] MEDS ORDERED: LORazepam TOPICAL 0.5 MG/ML GEL TP PRN (14:30)
--- NOTE | 2016-08-22 23:55 | PN ---
DATE: 08/21/2016 PSYCHIATRIC PROGRESS NOTE This is a late entry for 08/21/2016, covers elements not covered in my initial note. SUBJECTIVE: The plan was the patient to transfer to [place] for his hip surgery, but he is running a fever. Rapid response was called on him because he was overtly sedated, received Narcan since he has been getting morphine for the pain. I will defer medical management to Dr. Matias/Dr. Fournier. Chest x-ray reportedly was negative. I met with him in his room. REVIEW OF SYSTEMS: Ambulation impaired understandably. No CV, , pulmonary, eye system symptoms on review. MENTAL STATUS EXAM: Oriented to himself. Insight, judgment, recent and remote memory, attention, concentration, fund of knowledge poor, consistent with his diagnosis mentioned in my initial note. PLAN: No change from a psychiatric standpoint. Once the patient is medically stable, he may transfer for orthopedic care to [place]. NEERU CALIX MD DR: CHIDI/cristi JOB#: [id number] / [id number]
--- NOTE | 2016-08-23 19:49 | DS ---
DATE OF DISCHARGE: 08/21/2016 DISCHARGE SUMMARY/PSYCHIATRIC PROGRESS NOTE REASON FOR ADMISSION: Please refer to the admission history for details. Briefly, the patient is an 81-year-old male referred to us from [facility] on account explosive anger outbursts, being combative, exit seeking, banging doors, escalating in his aggression, confusion, psychosis, having failed outpatient psychiatric interventions, he is referred for inpatient psychiatric stabilization. SIGNIFICANT FINDINGS AND CLINICAL COURSE: Following admission, the patient was seen daily from a psychiatric standpoint by myself, medically followed per Dr. Matias/Dr. Fournier. Adjustments were made in his psychotropics and he seemed to be responding gradually to these changes, but at this stage, he dislocated his artificial hip. [facility] intervened to manipulate it back in space and he continued psychiatric treatment with us inpatient. Towards the end of his psychiatric stay, he was doing better on a combination of Zoloft 50 mg a day, Ativan p.r.n., Zyprexa p.r.n., BuSpar 5 mg t.i.d., melatonin 3 mg at bedtime, Remeron 7.5 at bedtime, Ativan and Haldol had been used IM due to his p.o. meds being ineffective, but plan was to discontinue these. At this stage, he once again dislocated his hip and then was transferred to [facility] for specific orthopedic intervention as a consequence of this. Prior to discharge, he was somewhat sedated due to the morphine he received for pain and temperature was elevated with some cough, but Dr. Fournier managed the patient from a medical standpoint. Progress note dated 08/21/2016 is made part of this discharge summary. FINAL DIAGNOSES: Major neurocognitive disorder, Alzheimer, vascular with depression, delusion, behavioral disturbance; anxiety disorder, unspecified; impulse control disorder, unspecified. Rest diagnoses unchanged from admission and he does have a dislocated artificial hip. DISCHARGE MEDICATIONS: Please refer to the [facility]AD. Outpatient psychiatric followup at [facility] and he may return to the nursing facility once he is stable from orthopedic standpoint. Time for discharge day management greater than 30 minutes. NEERU CALIX MD DR: CHIDI/cristi JOB#: [id number] / [id number]
== END 2016-08-21 18:57 | disposition short-term general hospital (02) | DRG 884 ==
LOC: GEROPSY 20:31
PROVIDERS: ADMIT Psychiatry & Neurology Psychiatry; ATTEND Psychiatry & Neurology Psychiatry
DX: F01.51 Vascular dementia, unspecified severity, with behavioral disturbance (principal); F02.81 Dementia in other diseases classified elsewhere, unspecified severity, with behavioral disturbance; G30.9 Alzheimer's disease, unspecified; F32.9 Major depressive disorder, single episode, unspecified; F41.9 Anxiety disorder, unspecified; F63.9 Impulse disorder, unspecified; M19.90 Unspecified osteoarthritis, unspecified site; I11.0 Hypertensive heart disease with heart failure; I50.9 Heart failure, unspecified; M25.559 Pain in unspecified hip; Z66 Do not resuscitate; Z79.899 Other long term (current) drug therapy; Z91.83 Wandering in diseases classified elsewhere
CPT/HCPCS: 36415; 36600; 71010; 73501; 73502; 80053; 80061; 81001; 82306; 82607; 82803; 83036; 83540; 83550; 83605; 83735; 84436; 84443; 84480; 85007; 85027; 86592; 86593; 87040; 93005; 94799; J1630; J2060; J2310; 73500; 97530